=== PATIENT | female | born 1995 | race Hispanic/Latino ===

== ENCOUNTER 2017-09-12 21:39 | Emergency (ER) | payer MEDICAID, SELFPAY ==
[2017-09-12 21:41] VITALS: BP 121/82; PULSE 97; RESP 14; TEMP 36.8; O2SAT 100; BMI 19.1
[2017-09-12 23:18] VITALS: BP 108/61; PULSE 79; RESP 18; O2SAT 100
--- NOTE | 2017-09-12 23:36 | EKG12_ITS ---
Test Reason : SYNCOPE Blood Pressure : / mmHG Vent. Rate : 100 BPM Atrial Rate : 100 BPM P-R Int : 126 ms QRS Dur : 082 ms QT Int : 352 ms P-R-T Axes : 072 066 036 degrees QTc Int : 454 ms Normal sinus rhythm Low voltage QRS Borderline ECG Confirmed by RICH GUNDERSON, ERIKA ([id number]), editor producer MARI ALDRIDGE ([id number]) on 09/14/2017 3:16:19 PM Referred By: JYOTHI SHOOK/SG Confirmed By:ERIKA VILLANUEVA MD
--- NOTE | 2017-09-12 23:44 | NURSING ---
NO OLD EKG'S IN MUSE
[2017-09-12 23:51] VITALS: BP 109/76; BP 114/86; BP 98/63; PULSE 79; PULSE 80; PULSE 82
[2017-09-13] MEDS: 0.9% Normal Saline 1,000 ML 1000 ML IV (00:01)
[2017-09-13 00:11] LABS: Absolute Lymphocyte Count 2.44 X10^3/ul (0.83-4.51); Absolute Neutrophil Count 8.8 X10^3/uL (2.0-7.7); Basophil# 0.03 X10^3/uL; Basophil% 0.2 % (0-1); Eosinophil# 0.13 X10^3/uL; Eosinophils% 1.1 % (0-5); Hematocrit 34.8 % (37-47); Hemoglobin 11.8 g/dl (12.0-15.0); Lymphocyte # 2.44 X10^3/ul (4.0); Mean Corp Hgb Conc 33.9 g/gl (32-36); Mean Corpuscular Hgb 30.8 pg (27.0-32.0); Mean Corpuscular Volume 90.9 fL (81-99); Mean Platelet Vol. 10.5 fl (6.2-12.0); Monocyte# 0.79 X10^3/uL; Monocyte% 6.5 % (0-10); Neutrophil # 8.79 X10^3/uL (2.7-7.7); Platelet Count 202 K/mm3 (150-450); RBC Distribution Width CV 12.7 % (11.6-14.6); RBC Distribution Width SD 42.2 fl (35.1-43.9); Red Blood Count 3.83 M/mm3 (4.2-5.4); White Blood Count 12.2 K/mm3 (4.4-11.0)
[2017-09-13 00:13] LABS: POSITIVE COUNT NO; POSITIVE DIFFERENTIAL NO; POSITIVE MORPHOLOGY NO
[2017-09-13 00:31] LABS: Anion Gap 6 (5-15); BUN 8 mg/dL (7-18); BUN/Creat Ratio 17.9 RATIO (10-20); Calcium,Total 8.1 mg/dL (8.5-10.1); Chloride 110 mmol/L (98-107); Creatinine, Serum 0.45 mg/dL (0.55-1.02); EST Glomerular Filtration Rate 183 mL/min (>60); Est Glom Filt Rate - Afr Amer 221 mL/min (>60); Estimated Creatinine Clearance 158.25 ml/min; Glucose 113 mg/dL (74-106); Potassium 3.4 mmol/L (3.5-5.1); Sodium Level 143 mmol/L (136-145); Thyroid Stim Hormone (TSH) 1.23 uIU/mL (0.358-3.74)
[2017-09-13 00:55] LABS: Pregnancy, Serum, hCG Quali. NEGATIVE Negative (0-9 Nonpreg)
[2017-09-13 01:06] VITALS: BP 104/58; PULSE 83; RESP 20; O2SAT 100
--- NOTE | 2017-09-13 01:20 | ED.VISSUMM ---
- ER Visit Summary Date of Service: 09/13/17 Chief Complaint: Dizziness History of Present Illness: The patient is a 22 F presenting with dizziness. She states this has been ongoing for the past 10 days. She has felt lightheaded. It is worse when she stands. Today she had an episode where she had near syncope. She did not completely pass out. She describes a lightheaded and spinning sensation. Denies headache. Denies numbness or weakness. Denies fever. Denies chest pain or shortness of breath. Denies other complaints. Physical Examination: Vitals are stable. Patient is afebrile. Alert no acute distress. HEENT exam is unremarkable. Neck is supple. Lungs are clear and equal bilaterally. Heart is regular rate and rhythm. Abdomen is soft nontender nondistended. Extremities are unremarkable. Skin is warm and dry. No focal neurologic deficit. Remainder of exam is unremarkable. Emergency Department Course and Treatment: Patient was given IV fluids. CBC shows a white count of 12.2, hemoglobin 11.8. Chemistries unremarkable. HCG negative. TSH is normal. Orthostatics are negative. EKG sinus rate of 100 with no acute ischemic changes. CT head shows no acute process. Patient is feeling improved following IV fluids. She is advised to follow-up with her PCP and return to ED if she has worsening complaints. Disposition: Discharge home Impression: Dizziness This note was generated with Darby Smart dictation software. It may contain incorrect words, spelling, and punctuation that were not noted in review of the chart prior to signing ED Disposition - Plan for ED Patient: Chief Complaint: Dizziness Referrals: Care Physician,No Primary [Primary Care Provider] -
--- NOTE | 2017-09-13 01:25 | ED.DEP ---
ED Disposition - Plan for ED Patient: Chief Complaint: Dizziness Instructions: ED Dizziness [facility] Prescriptions: Meclizine HCl [Travel Sickness] 25 mg PO Q6H PRN PRN #[id number] tab.[id number] PRN Reason: Dizziness Referrals: Care Physician,No Primary [Primary Care Provider] -
[2017-09-13 01:39] VITALS: BP 110/72; PULSE 80; RESP 19; O2SAT 99
--- NOTE | 2017-09-13 01:40 | ED.RN ---
pt given written and verbal discharge instructions and home going prescriptions. pt verbalizes understanding, and denies any further questions. iv d/c and covered with 2x2 gauze dressing. minimal bleeding noted. pt dresses self and ambulates out of dept without difficulty.
--- NOTE | 2017-09-13 23:36 | CT_ITS ---
STUDY: CT BRAIN WITHOUT CONTRAST REASON FOR EXAM: Female, 22 years old. Dizziness RADIATION DOSAGE (If Supplied By Facility): CTDIvol = ( 44.99 ) mGy, DLP = ( 779.24 ) mGycm TECHNIQUE: Transaxial CT imaging of the brain was performed without administration of intravenous contrast material. Individualized dose optimization techniques were used for this CT. COMPARISON: None. FINDINGS: Normal soft tissue structures. Normal calvarium. Normal size ventricles and extra-axial spaces for the patient's age. Normal white matter tracts of the cerebral hemispheres. Normal basal ganglia and thalami. Normal brainstem. Normal cerebellum. There is no intracranial hemorrhage. There are no findings of an acute ischemic infarction. Normal visualized paranasal sinuses. CT/Brain/Head without Contrast IMPRESSION: Normal unenhanced CT scan of the brain. Comment: If there is clinical concern for hyperacute ischemia that is not yet apparent by CT, MRI should be considered if possible. Electronically Signed: Juan Ramon Tripp MD at 0:57 EDT Tel , Service support ,
== END 2017-09-13 01:42 | disposition home or self-care (01) ==
LOC: ED 23:43
PROVIDERS: Emergency Provider Emergency Medicine
DX: R55 Syncope and collapse (principal); R42 Dizziness and giddiness
CPT/HCPCS: 70450; 80048; 84443; 84703; 85025; 93005; 96360; 96361; 99284; J7030

== ENCOUNTER → 2018-02-22 15:08 | Outpatient (CLI) | payer MEDICAID, SELFPAY | PROVIDERS: Visit Provider Otolaryngology | DX: J02.9 Acute pharyngitis, unspecified (principal) | CPT/HCPCS: 87070 ==

== ENCOUNTER 2018-07-08 20:03 | Emergency (ER) | payer MEDICAID, SELFPAY ==
[2018-07-08 20:06] VITALS: BP 112/62; PULSE 81; RESP 15; TEMP 36.7; BMI 19.8
--- NOTE | 2018-07-08 20:16 | CT_ITS ---
STUDY: CT ABDOMEN AND PELVIS WITHOUT CONTRAST REASON FOR EXAM: Female, 23 years old. Lower abdominal pain and acid reflux. RADIATION DOSAGE (If Supplied By Facility): CTDIvol = ( 6.05 ) mGy, DLP = ( 303.93 ) mGycm TECHNIQUE: Transaxial images were obtained from the dome of the diaphragm to the symphysis pubis without oral contrast, and without intravenous contrast. Sagittal and coronal images were reconstructed. Individualized dose optimization techniques were used for this CT. COMPARISON: None. FINDINGS: The visualized lung bases are unremarkable. The visualized portions of the heart are within normal limits. Normal liver. Numerous small to moderate-sized gallstones in a nondistended gallbladder. Normal spleen. Normal pancreas. Normal bilateral adrenal glands. Normal right kidney. Normal size of the left kidney. One faint 3 mm nonobstructing calcification in the midpole of left kidney without hydronephrosis or ureteral stones. Food filled stomach. Negative for hiatal hernia. Normal small intestine. Stool filled colon. The appendix is visualized and appears normal. Normal abdominal aorta. Normal inferior vena cava. Normal retroperitoneum. Normal urinary bladder. Grossly negative for pelvic mass. Retroflexed uterus. Limited visibility of the gynecologic structures secondary to nonopacified small bowel. Normal abdominal wall. Normal osseous structures. CT/Abdomen/Pelvis without Cont IMPRESSION: Stone packed nondistended gallbladder without gross wall thickening or pericholecystic fluid. No acute bowel related findings. Negative for evidence of obstruction, perforation or inflammatory bowel changes. Stool-filled colon. Food filled stomach. Normal appendix. Normal size of the kidneys bilaterally. 3 mm calcification in the midpole of the left kidney without hydronephrosis or ureteral stones. Unremarkable urinary bladder. Unremarkable liver, spleen and pancreas. Electronically Signed: Halle Gruber MD at 22:12 EST , Service support ,
--- NOTE | 2018-07-08 20:18 | ED.DCSUM_ITS ---
- ER Visit Summary Date of Service: 07/08/18 Chief Complaint: Abdominal pain History of Present Illness: The patient is a 23 F who has pain in her right lower quadrant. It has been there for 3 days. She states that she felt a lump in her right lower quadrant she has pain that is burning around that area. No burning with urination. No nausea, vomiting, diarrhea, constipation or urinary symptoms. She states that her acid reflux has been acting up on her recently. No fevers. She took nothing for this at home. She has had 2 C-sections in the past and the lump is near the end of the scar of her . Physical Examination: Vital signs reviewed. HEENT exam unremarkable. Heart is regular rate and rhythm without murmurs. Lungs are clear to auscultation. Abdomen is soft and there is tenderness around this mass in the right lower quadrant. It is mobile. It is approximately 1 x 1 cm. There are no skin changes. Extremities reveal no edema. Skin exam normal. Neurologic exam normal. Test Results: Urinalysis negative for infection. HCG negative. CAT scan reveals a stone filled gallbladder. Otherwise there are no other acute findings. Emergency Department Course and Treatment: The patient's pain is in the right lower quadrant. I do feel a mobile cyst in this area. It could be a lipoma. Is not seen on CAT scan. I feel the patient can be discharged. She will need to follow-up with a surgeon regarding this as well as the stone filled gallbladder. She has no pain over the gallbladder at this time so I do not feel it requires any urgent management. Treatment Plan: [] Disposition: Discharge Impression: Abdominal pain This note was generated with [employer] dictation software. It may contain incorrect words, spelling, and punctuation that were not noted in review of the chart prior to signing ED Disposition - Plan for ED Patient: Chief Complaint: Abd Pain Referrals: Care Physician,No Primary [NON-STAFF] -
[2018-07-08] MEDS: Naproxen 500 MG Tablet PO (20:21)
[2018-07-08 20:36] LABS: Bacteria 0 SEEN /hpf (None Seen); Mucous, Urine 0 SEEN /hpf (<or=2+); Red Blood Cells-Urine 0 SEEN /hpf (0-5); Squamous Epithelial Cells - UA 0 SEEN /hpf (5-10); White Blood Cells 0 SEEN /hpf (0-5)
[2018-07-08 20:40] LABS: Color, Urine Yellow (Yellow); Glucose, Dipstick Normal (Normal); Internal QC Validated? YES +Cl - CLEAR BKGD; Ketone-Dipstick Negative (Negative); Leukocyte Esterase-Dipstick Negative /ul (Negative); Nitrite-Dipstick Negative (Negative); Occult Blood-Urine Negative /ul (Negative); Pregnancy, Urine Negative Negative; Protein-Dipstick Negative (Negative); Specific Gravity, Urine 1.015 (1.002-1.030); Urine Bilirubin Dipstick Negative (Negative); Urine Clarity Clear (Clear); Urine Urobilinogen Normal (Normal); Urine pH 6.5 (5.0 - 8.0)
[2018-07-08 22:16] VITALS: BP 126/80; PULSE 84; RESP 16; O2SAT 100
--- NOTE | 2018-07-08 22:18 | ED.DEP ---
ED Disposition - Plan for ED Patient: Disposition: Home or Assisted Living Chief Complaint: Abd Pain Instructions: ED Abdominal Pain Unkn Cause Referrals: Care Physician,No Primary [NON-STAFF] - Nilda Wang MD [STAFF PHYSICIAN] -
[2018-07-08 22:31] VITALS: BP 122/63; PULSE 89; RESP 14; O2SAT 100
== END 2018-07-08 22:32 | disposition home or self-care (01) ==
PROVIDERS: Emergency Provider Emergency Medicine; Family Provider Family Medicine; PCP Family Medicine
DX: R10.31 Right lower quadrant pain (principal); R19.03 Right lower quadrant abdominal swelling, mass and lump; K80.20 Calculus of gallbladder without cholecystitis without obstruction; K21.9 Gastro-esophageal reflux disease without esophagitis
CPT/HCPCS: 74176; 81001; 81025; 99283

== ENCOUNTER 2019-03-13 16:47 | Emergency (ER) | payer MEDICAID, SELFPAY ==
[2019-03-13 16:49] VITALS: BP 101/67; PULSE 86; RESP 16; TEMP 36.4; O2SAT 100; BMI 19.4
[2019-03-13 17:24] VITALS: PULSE 75
--- NOTE | 2019-03-13 18:00 | EKG12_ITS ---
Test Reason : PALPS/CP Blood Pressure : / mmHG Vent. Rate : 073 BPM Atrial Rate : 073 BPM P-R Int : 126 ms QRS Dur : 090 ms QT Int : 392 ms P-R-T Axes : 062 070 038 degrees QTc Int : 431 ms Normal sinus rhythm Low Voltage QRS (Limb Leads) Confirmed by FESTUS GUNDERSON, VERO ([id number]), desk editor JESSICA YADAV ([id number]) on 03/15/2019 2:02:55 PM Referred By: SANTOS/BOONE Confirmed By:VERO MORTENSEN MD
--- NOTE | 2019-03-13 18:01 | ED.VISSUMM ---
- ER Visit Summary Date of Service: 03/13/19 Chief Complaint: Palpitations History of Present Illness: The patient is a 23 F presenting with palpitations and chest pain. Patient states this started yesterday. She has consumed a normal amount of caffeine for her today. She denies any new medications. She complains of intermittent palpitations and chest pain yesterday and more constant symptoms today. She has no past medical history. She denies possibility of . She does not smoke, use alcohol or drugs. Denies other complaints. Physical Examination: Vitals are stable. Patient is afebrile. Alert no acute distress. HEENT exam is unremarkable. Neck is supple. Lungs are clear and equal bilaterally. Heart is regular rate and rhythm. Abdomen is soft nontender nondistended. Extremities are unremarkable. Skin is warm and dry. No focal neurologic deficit. Remainder of exam is unremarkable. Emergency Department Course and Treatment: She was given aspirin on arrival. EKG is sinus rhythm rate of 73 with no acute ischemic changes. Chest x-ray shows no acute process. CBC unremarkable. Chemistry is unremarkable. Troponin is negative. D-dimer negative. hCG negative. TSH is normal. Patient states she needs to leave emergency department and is no longer able to wait for test results. Recommend delta troponin. She is unable to stay for this test. She signed out AGAINST MEDICAL ADVICE. She understands risks of signing out against medical advice. She will return if she has any worsening complaints. She is advised follow-up with primary care physician. Advised return to ED for worsening symptoms. Disposition: AGAINST MEDICAL ADVICE Impression: Palpitations, chest pain This note was generated with eCullet dictation software. It may contain incorrect words, spelling, and punctuation that were not noted in review of the chart prior to signing ED Disposition - Plan for ED Patient: Instructions: CHEST PAIN, Uncertain Cause Referrals: Justyn Nieto MD [Primary Care Provider] -
--- NOTE | 2019-03-13 18:10 | RAD_ITS ---
STUDY: X-RAY CHEST REASON FOR EXAM: Female, 23 years old. Palpitations TECHNIQUE: Frontal view of the chest was performed COMPARISON: 10 July 2016 FINDINGS: Lungs are clear. There is no pneumothorax, pulmonary edema, pleural effusions or cardiomegaly. Osseous structures are intact. There is no gas under the diaphragms. [ ] RAD/Chest 1 View (Portable) IMPRESSION: 1. No acute cardiorespiratory disease. [ ] Electronically Signed: Lele Taylor, at 18:25 EDT Tel , Service support ,
[2019-03-13 18:15] VITALS: PULSE 84
[2019-03-13 18:16] LABS: Absolute Lymphocyte Count 2.63 X10^3/uL (0.83-4.51); Absolute Neutrophil Count 3.8 X10^3/uL (2.0-7.7); Basophil# 0.02 X10^3/uL; Basophil% 0.3 % (0-1); Eosinophil# 0.19 X10^3/uL; Eosinophils% 2.7 % (0-5); Hematocrit 36.2 % (37-47); Hemoglobin 11.7 g/dL (12.0-15.0); Lymphocyte # 2.63 X10^3/ul (4.0); Mean Corp Hgb Conc 32.3 g/dL (32-36); Mean Corpuscular Hgb 29.5 pg (27.0-32.0); Mean Corpuscular Volume 91.4 fL (81-99); Mean Platelet Vol. 11.2 fl (6.2-12.0); Monocyte# 0.48 X10^3/uL; Monocyte% 6.8 % (0-10); NRBC Flagged by Analyzer 0 % (0-5); Neutrophil # 3.76 X10^3/uL (2.7-7.7); Neutrophil % 52.8 % (47-70); Platelet Count 204 K/mm3 (150-450); RBC Distribution Width CV 12.6 % (11.6-14.6); RBC Distribution Width SD 41.7 fl (35.1-43.9); Red Blood Count 3.96 M/mm3 (4.2-5.4); White Blood Count 7.1 K/mm3 (4.4-11.0)
[2019-03-13] MEDS: Aspirin 81 MG TAB.CHEW 324 MG PO (18:24)
[2019-03-13 18:26] VITALS: O2SAT 100
[2019-03-13 18:26] LABS: D-Dimer Quantitative (DVT/PE) < 0.27 FEU/ug/m (0.27-0.49)
[2019-03-13 18:27] VITALS: BP 100/61; PULSE 80; RESP 18; O2SAT 100
[2019-03-13 18:36] LABS: Anion Gap 4 (5-15); BUN 16 mg/dL (7-18); BUN/Creat Ratio 23.6 RATIO (10-20); Calcium,Total 8.5 mg/dL (8.5-10.1); Chloride 106 mmol/L (98-107); Creatinine, Serum 0.68 mg/dL (0.55-1.02); EST Glomerular Filtration Rate 112 mL/min (>60); Est Glom Filt Rate - Afr Amer 135 mL/min (>60); Estimated Creatinine Clearance 105.82 ml/min; Glucose 87 mg/dL (74-106); Sodium Level 137 mmol/L (136-145); Thyroid Stim Hormone (TSH) 0.42 uIU/mL (0.358-3.74)
[2019-03-13 18:45] LABS: Internal QC Validated? YES +Cl - CLEAR BKGD; Pregnancy, Serum, hCG Quali. NEGATIVE Negative
[2019-03-13 19:13] VITALS: BP 106/63; PULSE 76; RESP 16; O2SAT 100
--- NOTE | 2019-03-13 20:48 | ED.DEP ---
ED Disposition - Plan for ED Patient: Instructions: CHEST PAIN, Uncertain Cause Referrals: Justyn Nieto MD [Primary Care Provider] -
== END 2019-03-13 21:04 | disposition left against medical advice (07) ==
LOC: ED 17:52
PROVIDERS: Emergency Provider Emergency Medicine; Family Provider Family Medicine; PCP Family Medicine
DX: R07.9 Chest pain, unspecified (principal); R00.2 Palpitations
CPT/HCPCS: 71045; 80048; 84443; 84484; 84703; 85025; 85379; 93005; 99283; A4216

== ENCOUNTER 2020-07-27 08:34 | Observation (INO) | payer MEDICAID, SELFPAY ==
[2020-07-27] VITALS (15 sets, daily range): BP systolic 97–121; BP diastolic 52–86; PULSE 9–99; RESP 14–18; TEMP 36.4–36.9; O2SAT 97–100; BMI 20.5; BMI 20.6
--- NOTE | 2020-07-27 | GALL_PTH ---
PATIENT: CHENCHO FOX LOC: [facility]3 U#:[id number] AGE/SX: 25/F ROOM: MS321 RE07/27/[address]: Dr. Makenna Thompson MD : 1995 BED: 1 DIS: 07/29/2020 SPEC #: [id number] RECD: 07/29/20 07:40 STATUS: BROOK RENoe #: [id number] RENARD: 07/27/20 00:[address]: Makenna Thompson DEPT: SURGICAL PATHOLOGY RECD BY: Lino Gandara ENTERED: 07/29/20 11:00 SP TYPE: ERMELINDA FREIRE DR: Dr. Justyn Nieto MD Tissues: Gallbladder, NOS Procedures: Surgery Specimen Level III HEADER OPERATION: Laparoscopic cholecystectomy with IOC PRE-OP DIAGNOSIS: Cholelithiasis, acute cholecystitis TISSUE SUBMITTED: Gallbladder MICROSCOPIC DIAGNOSIS Gallbladder, cholecystectomy: Acute and chronic cholecystitis with denudation of mucosa and cholelithiasis. AM:[place] 07/30/2020 MICROSCOPIC DESCRIPTION Slides are reviewed. GROSS DESCRIPTION Received is one container labeled with the patient's name and designated gallbladder. The specimen consists of a gallbladder measuring 10 x 3 x 3 cm. The external surface is smooth and glistening. Focally, it is granular, hemorrhagic and contains cautery artifact. The lumen of the gallbladder contains yellow-green mucoid bile and multiple green to black calculi ranging in size from <0.1 to 0.5 cm in greatest dimension. The gallbladder mucosa is bile-stained and without any mass lesions. The gallbladder wall averages 0.4 cm in thickness and is free of mass lesions. Social Media Specialist sections of the gallbladder and the cystic duct at margin of resection are submitted in one cassette. / AM:[place] 07/29/20 TC:2 [facility]: [id number]
--- NOTE | 2020-07-27 08:41 | ED.RN ---
pt on phone. this rn required to interrupt pt on 3 occasions to obtain information
--- NOTE | 2020-07-27 08:48 | US_ITS ---
STUDY: ABDOMINAL ULTRASOUND - RIGHT UPPER QUADRANT REASON FOR VISIT: Female, 25 years old ruq pain - h/o gallstones TECHNIQUE: Ultrasound evaluation of the right upper quadrant was performed with real-time and static villalobos-scale imaging. TECHNICAL QUALITY: Adequate. COMPARISON: None. FINDINGS: Liver: The liver measures 17.6 cm. There is normal echogenicity of the liver. The bile ducts are within normal limits. There is hepatic color flow. The direction of portal flow is hepatopetal. There is no demonstrated mass lesion. Gallbladder: Normal distended gallbladder. The gallbladder wall measures 5 mm. There is a positive sonographic Saucedo''s sign. There is pericholecystic fluid. There are multiple echogenic structures within the gallbladder, consistent with multiple gallstones. Common Bile Duct (C.B.D.): The common bile duct measures 3 mm. Questionable stone in the common bile duct. Pancreas: Normal size of the head, body and tail of the pancreas. There is normal echogenicity of the pancreas. There is no demonstrated pancreatic mass or cyst. Right Kidney: Normal size of the right kidney. The right kidney measures 11.1 cm. Normal renal cortex. The right cortex measures 1.2 cm. There is no demonstrated renal mass or cyst. There is no right hydronephrosis. US/Gallbladder IMPRESSION: 1. Cholelithiasis with acute cholecystitis with gallbladder wall thickening, pericholecystic fluid, positive sonographic Saucedo''s sign. 2. Suspect choledocholithiasis. MRCP may be useful. Alternatively, intraoperative cholangiogram during cholecystectomy could suffice per N.B. : The above information has been verbally conveyed by Franky Khanna MD to Juan Ramon Campbell MD, on 07/27/2020 10:22:36 (ET). Electronically Signed: Franky Khanna MD at 10:23 EST Tel , Service support ,
--- NOTE | 2020-07-27 08:49 | ED.DCSUM_ITS ---
History of Present Illness Chief Complaint: Abd Pain Informant: Patient Narrative: Very pleasant 25-year-old female presenting for the evaluation of right upper quadrant and epigastric abdominal pain. Patient notes that symptoms began around the new year and has been intermittent. However the past couple days the pain has come more frequently and more intense. Last night she ate salmon and boiled potatoes around 1800 hrs. The pain began around 0000 hours. Has been constant since then. She made herself vomit one time which she states helps to diminish the pain. No diarrhea. No fevers. She notes the pain radiates to the right back. Patient notes a prior surgical history of 2 C-sections. Approximately 2 years ago she was seen in the emergency department had a CAT scan that demonstrated a large amount of gallstones. She has not had surgery for this yet. Last p.o. intake was at 1800 hrs. Nothing since. Past Medical History - Allergies and Home Meds Allergies/Adverse Reactions: Allergies No Known Allergies Allergy (Verified 07/27/20 08:38) Primary Care Physician: Justyn Nieto MD [Primary Care Provider] - Past Medical History: None Surgical History: - - x2 Lives: With Family Smoking Status: Never smoker Alcohol: None Drugs: None Review of Systems General: Denies: Chills, Fever, Sweats Eyes: Denies: Visual changes - bilaterally, Diplopia ENT: Denies: Rhinorrhea, Sore throat Cardiovascular: Denies: Chest pain, Palpitations Respiratory: Denies: Dyspnea, Cough, Dyspnea on exertion Gastrointestinal: Reports: Abdominal pain, Nausea, Vomiting. Denies: Diarrhea, Melena, Hematochezia Genitourinary: Denies: Dysuria, Hematuria, Frequency Musculoskeletal: Denies: Back pain, Extremity Pain Skin: Denies: Rash, Wounds Neurological: Denies: Headache, Weakness, Numbness Physical Exam Vital Signs/Narrative: Vital Signs Temp Pulse Resp BP Pulse Ox 07/27/20 08:35 97.9 F 99 18 114/78 100 Inital Vital Signs reviewed: Yes General: Well nourished, Well developed, No Acute Distress Head: Normocephalic, Atraumatic Eyes: Perrl, EOMI ENT: Moist mucous membranes, No rhinorrhea Neck: Supple, Nontender Cardiovascular: Regular rate, Regular rhythm, No murmurs Respiratory: No distress, CTA bilaterally, Chest nontender Abdomen: Soft, Nondistended, Normal bowel sounds, Tender - Upper quadrant, Guarding, Rebound tenderness Back: Nontender, Normal Inspection Extremities: Nontender, No edema Skin: Normal color, No rash Neurological: Alert, Oriented x3, Cranial nerves II-XII grossly intact, Normal Strength, Normal Sensation Psychological: Normal affect, Normal Mood Diagnostic/Tx/Re-eval Laboratory Last Values WBC 10.1 K/mm3 (4.4-11.0) 07/27/20 09:00 RBC 4.46 M/mm3 (4.2-5.4) 07/27/20 09:00 Hgb 13.0 g/dL (12.0-15.0) 07/27/20 09:00 Hct 41.0 % (37-47) 07/27/20 09:00 MCV 91.9 fL (81-99) 07/27/20 09:00 MCH 29.1 pg (27.0-32.0) 07/27/20 09:00 MCHC 31.7 g/dL (32-36) L 07/27/20 09:00 RDW Std Deviation 42.4 fl (35.1-43.9) 07/27/20 09:00 RDW Coeff of Augustine 12.5 % (11.6-14.6) 07/27/20 09:00 Plt Count 230 K/mm3 (150-450) 07/27/20 09:00 MPV 10.9 fl (6.2-12.0) 07/27/20 09:00 Immature Gran % (Auto) 0.600 % (0.0-0.9) 07/27/20 09:00 Neut % (Auto) 67.9 % (47-70) 07/27/20 09:00 Lymph % (Auto) 21.6 % (19-41) 07/27/20 09:00 Toole % (Auto) 5.7 % (0-10) 07/27/20 09:00 Eos % (Auto) 3.9 % (0-5) 07/27/20 09:00 Baso % (Auto) 0.3 % (0-1) 07/27/20 09:00 Absolute Neuts (auto) 6.9 X10^3/uL (2.0-7.7) 07/27/20 09:00 Absolute Lymphs (auto) 2.18 X10^3/uL (0.83-4.51) 07/27/20 09:00 Nucleated RBC % 0 % (0-5) 07/27/20 09:00 Sodium 136 mmol/L (136-145) 07/27/20 09:00 Potassium 3.7 mmol/L (3.5-5.1) 07/27/20 09:00 Chloride 103 mmol/L (98-107) 07/27/20 09:00 Carbon Dioxide 28.0 mmol/L (21.0-32.0) 07/27/20 09:00 Anion Gap 5 (5-15) 07/27/20 09:00 BUN 8 mg/dL (7-18) 07/27/20 09:00 Creatinine 0.64 mg/dL (0.55-1.02) 07/27/20 09:00 Estim Creat Clear Calc 113.46 ml/min 07/27/20 09:00 Est GFR (MDRD) Af Amer 144 mL/min (>60) 07/27/20 09:00 Est GFR (MDRD) Non-Af 119 mL/min (>60) 07/27/20 09:00 BUN/Creatinine Ratio 12.6 RATIO (10-20) 07/27/20 09:00 Glucose 96 mg/dL (74-106) 07/27/20 09:00 Calcium 9.1 mg/dL (8.5-10.1) 07/27/20 09:00 Total Bilirubin 1.30 mg/dL (0.20-1.00) H 07/27/20 09:00 Direct Bilirubin 0.28 mg/dL (0.00-0.30) 07/27/20 09:00 AST 10 U/L (15-37) L 07/27/20 09:00 ALT 16 U/L (13-56) 07/27/20 09:00 Alkaline Phosphatase 68 U/L (45-117) 07/27/20 09:00 Total Protein 8.1 g/dL (6.4-8.2) 07/27/20 09:00 Albumin 3.9 g/dL (3.2-5.0) 07/27/20 09:00 Globulin 4.2 g/dL (2.2-4.2) 07/27/20 09:00 Amylase 65 U/L (25-115) 07/27/20 09:00 Lipase 95 U/L (73-393) 07/27/20 09:00 Serum , Qual NEGATIVE Negative 07/27/20 09:00 Clinical Impression(s) from Imaging Studies Gallbladder Ultrasound 07/27/20 08:48 IMPRESSION: 1. Cholelithiasis with acute cholecystitis with gallbladder wall thickening, pericholecystic fluid, positive sonographic Saucedo''s sign. 2. Suspect choledocholithiasis. MRCP may be useful. Alternatively, intraoperative cholangiogram during cholecystectomy could suffice per N.B. : The above information has been verbally conveyed by Franky Khanna MD to Juan Ramon Campbell MD, on 07/27/2020 10:22:36 (ET). Electronically Signed: Franky Khanna MD at 10:23 EST Tel , Service support , ADDENDUM: 07/27/20 1030 IMPRESSION: 1. Cholelithiasis with acute cholecystitis with gallbladder wall thickening, pericholecystic fluid, positive sonographic Saucedo''s sign. 2. Suspect choledocholithiasis. MRCP may be useful. Alternatively, intraoperative cholangiogram during cholecystectomy could suffice per N.B. : The above information has been verbally conveyed by Franky Khanna MD to Juan Ramon Campbell MD, on 07/27/2020 10:22:36 (ET). Electronically Signed: Franky Khanna MD at 10:23 EST Tel , Service support , - Medical Decision Making Patient's white count is normal. Gallbladder ultrasound shows cholelithiasis, gallbladder wall thickening, pericholecystic fluid, positive Saucedo sign. Medical Office Technician raise question of a possible stone in the common bile duct. I discussed that with radiologist directly. At this point is most likely not a stone. Her liver enzymes do not raise a obstructive pattern patient has initially refused morphine. I will give her a dose of Zosyn. Dr. Thompson who is on-call for surgery will be in to see the patient. ED Disposition - Plan for ED Patient: Disposition: Acute Care [facility] Diagnosis: Acute cholecystitis Referrals: Justyn Nieto MD [Primary Care Provider] -
[2020-07-27] MEDS: Ondansetron 4 MG/2 ML Vial IV ×2 (09:08→17:35)
[2020-07-27] MEDS: 0.9% Normal Saline 1,000 ML 1000 ML IV (09:09)
[2020-07-27 09:15] LABS: Absolute Lymphocyte Count 2.18 X10^3/uL (0.83-4.51); Absolute Neutrophil Count 6.9 X10^3/uL (2.0-7.7); Basophil# 0.03 X10^3/uL; Basophil% 0.3 % (0-1); Eosinophil# 0.39 X10^3/uL; Eosinophils% 3.9 % (0-5); Lymphocyte # 2.18 X10^3/ul (4.0); Lymphocyte % 21.6 % (19-41); Mean Corp Hgb Conc 31.7 g/dL (32-36); Mean Corpuscular Hgb 29.1 pg (27.0-32.0); Mean Corpuscular Volume 91.9 fL (81-99); Mean Platelet Vol. 10.9 fl (6.2-12.0); Monocyte# 0.58 X10^3/uL; Monocyte% 5.7 % (0-10); NRBC Flagged by Analyzer 0 % (0-5); Neutrophil # 6.87 X10^3/uL (2.7-7.7); Neutrophil % 67.9 % (47-70); Platelet Count 230 K/mm3 (150-450); RBC Distribution Width CV 12.5 % (11.6-14.6); RBC Distribution Width SD 42.4 fl (35.1-43.9); Red Blood Count 4.46 M/mm3 (4.2-5.4); White Blood Count 10.1 K/mm3 (4.4-11.0)
[2020-07-27 09:37] LABS: AST(SGOT) 10 U/L (15-37); Alanine Aminotransfer ALT/SGPT 16 U/L (13-56); Albumin, Serum 3.9 g/dL (3.2-5.0); Alkaline Phosphatase 68 U/L (45-117); Amylase 65 U/L (25-115); Anion Gap 5 (5-15); BUN 8 mg/dL (7-18); BUN/Creat Ratio 12.6 RATIO (10-20); Bilirubin, Direct 0.28 mg/dL (0.00-0.30); Calcium,Total 9.1 mg/dL (8.5-10.1); Chloride 103 mmol/L (98-107); Creatinine, Serum 0.64 mg/dL (0.55-1.02); EST Glomerular Filtration Rate 119 mL/min (>60); Est Glom Filt Rate - Afr Amer 144 mL/min (>60); Estimated Creatinine Clearance 113.46 ml/min; Globulin 4.2 g/dL (2.2-4.2); Glucose 96 mg/dL (74-106); Lipase 95 U/L (73-393); Potassium 3.7 mmol/L (3.5-5.1); Protein, Total 8.1 g/dL (6.4-8.2); Sodium Level 136 mmol/L (136-145)
[2020-07-27 09:41] LABS: Internal QC Validated? YES +Cl - CLEAR BKGD; Pregnancy, Serum, hCG Quali. NEGATIVE Negative
--- NOTE | 2020-07-27 10:51 | ED.RN ---
pt initially refuses pain meds. Refused additional offers as well.
--- NOTE | 2020-07-27 11:04 | PCM.HP.BLA ---
History and Physical Date of Admission: 07/27/20 Chief Complaint: RUQ abdominal pain History of Present Illness: 25 y/o F presents to ED with severe RUQ abdominal pain. Noted for the past couple of weeks. She is found in the ED to have a normal WBC with no left shift of differential. She has elevated tbili of 1.3. US gallbladder - pericholecystic fluid, wall thickening, positive Saucedo's sign, multiple gallstones. She has been having chills. She states that she has no appetite. Past Medical History: denies major medical illnesses Past Surgical History: csections x 2 Medications: denies taking chronic medications Allergies: Has no known drug allergies Social history: TOB use denies Review of Systems: General - has had chills, has decreased appetite Cardiovascular has had chest palpitations and pains in the past attributed to anxiety and stress, denies history of [place] Pulmonary denies shortness of breath, denies coughing up blood Gastrointestinal as per HPI, denies blood in stools, denies hematemesis Neurological denies numbness/weakness of extremities, denies seizures, denies history of stroke Genitourinary denies burning with urination, denies blood in urine Hematological denies spontaneous/prolonged bleeding Skin denies open non healing wounds Musculoskeletal denies history of fractures, denies arthritis Endocrine denies diabetes, denies thyroid problems Psychological denies suicidal ideation, denies hallucinations Physical examination: Vital signs Temp 97.9F HR 99 RR 18 BP 114/78 BMI 20 General WD/WN F in apparent abdominal pain with distress, alert and oriented, not septic appearing HEENT Normocephalic. EOM intact with sclera clear and no icterus noted. Neck is supple with no jugular venous distention noted. Trachea is midline. Lungs normal inspiratory effort. No adventitial sounds noted. No labored breathing noted, such as retractions. No cough heard. Heart regular. Abdomen soft but with RUQ abdominal pain with Saucedo's sign. Extremities no calf tenderness noted. No pitting edema noted. No obvious deformity noted. Genitourinary/Rectal deferred Skin normal skin integrity. Neurological non focal. Psychological normal affect, patient is calm and appropriate Impression: cholelithiasis, acute cholecystitis DIscussion/Plan: I have discussed the above with the patient. I have offered the patient the procedure of laparoscopic cholecystectomy, possible cholangiograms. I have explained the procedure to the patient. I have counseled the patient as to the risks of the procedure, including but not limited to: infection, bleeding, injury to any blood vessels/nerves, scar tissue, injury to any intraabdominal organs, injury to kidney/ureters, injury to bowel/bladder, injury to the common bile duct/biliary tree, bile leakage, intraabdominal abscess/bleeding, hernias at incisional sites, wound infections, possible open procedure, complications of anesthesia, postoperative pneumonia/cardiac problems/blood clots etc. the patient understands. The patient was offered a surgery/procedure. The provider and patient have discussed in detail the risk of exposure to and/or potential harm posed by the COVID-19 virus with having a surgery/procedure at this time versus the risk of delaying the surgery/procedure. It is not possible to know either the risk of delaying the surgery or procedure or chance of getting an infection with perfect accuracy, but a joint decision was made between the patient and the provider to proceed at this time with the scheduled surgery/procedure. I have answered all questions to the patient?s satisfaction and the patient has no further questions.
--- NOTE | 2020-07-27 11:09 | NURSING ---
OR BEAU LAP CHOLECYSTITIS
--- NOTE | 2020-07-27 11:14 | NURSING ---
MED SURG ACUTE CHOLECYSTITIS YANEZ
[2020-07-27] MEDS: 0.9% Normal Saline 1,000 ML 250 ML IV (11:26)
--- NOTE | 2020-07-27 12:25 | RAD_ITS ---
PROCEDURE: INTRAOPERATIVE CHOLANGIOGRAM DATE OF EXAMINATION: 07/27/2020 INDICATION: Female, 25 years old. Following a laparoscopic cholecystectomy an intraoperative cholangiogram was performed by the surgeon. Single fluoroscopic image. 0.8 seconds of fluoroscopy time. TECHNIQUE: Under fluoroscopic guidance an intraoperative cholangiogram was performed with serial digital images obtained. FINDINGS: Partial opacification of the gallbladder with extravasation in the brad hepatis. Minimal filling of the intrahepatic and upper common hepatic duct but there is nonvisualization of the common duct. RAD/Cholangiogram/ O R,Initial IMPRESSION: Very limited intraoperative cholangiogram. Limited diagnostic information. Electronically Signed: Luis Daniel Navarrete MD ([facility]) at 15:18 EST , Service support ,
[2020-07-27] MEDS: Bupiv/Epi 0.25% 30 ML Vial (13:00)
--- NOTE | 2020-07-27 13:53 | OP.PCM_ITS ---
Report of Operation Date of Procedure: 07/27/20 Pre-Operative Diagnosis: cholelithiasis, acute cholecystitis, severe RUQ a bdominal pain Post-Operative Diagnosis: cholelithiasis with obstruction, acute cholecystitis, choledocholithiasis with obstruction Surgery/Procedure Performed:: laparoscopic cholecystectomy with cholangiograms Description of Surgical Findings:: very short cystic duct, multiple stones in common bile duct as seen by cholangi ograms with obstruction no flow into duodenum aviation project engineer: Lori Richardson Type of Anesthesia:: General Anesthesiologist: Wyatt Rachel Specimen's removed: gallbladder and contents Drains: 15 Fr passive drain in right upper quadrant inferior to liver Estimated Blood Loss (mL): < 5 ml Fluids Replaced: 1500 ml RL Description of Procedure: After informed consent was given, the patient was brought to the Operating Room. Appropriate time out protocol was followed. The patient was placed in the supine position. The patient was then placed under general endotracheal anesthesia by the anesthesia provider. The abdomen was then prepped with a sterile surgical skin preparation and sterile surgical drapes were placed. The infraumbilical skin fold was grasped with penetrating clamps and the skin and subcutaneous tissues were infiltrated with 0.25% marcaine with epinephrine. A skin incision was then made with a 15 blade scalpel. The anterior abdominal wall was elevated and a Veress needle was carefully inserted into the intraabdominal cavity. It was checked to be in the proper position with a normal saline drop test. A CO2 pneumoperitoneum was then created. Once this was achieved, then the Veress needle was removed and an 11mm trocar was placed in its stead. A 10mm laparoscope was then inserted into the trocar and careful attention was directed to the intraabdominal contents. There was no evidence of injury to any intraabdominal organs from insertion of the Veress needle or the trocar. Under direct visualization, a 5mm subxiphoid trocar and two lateral 5mm right subcostal trocars were placed. The skin and subcutaneous tissues at these sites were infiltrated with 0.25% marcaine with epinephrine prior to placement of these trocars. Attention was then directed to the right upper quadrant of the abdomen. The liver appeared grossly normal. There were omental adhesions to the free surface of the gallbladder, these were taken down by blunt dissection. The gallbladder wall was edematous and thickened. The gallbladder was distended and was decompressed with a needle trocar such that it could be grasped for retraction. Graspers were placed in the lateral trocars to grasp the distal aspect of the gallbladder and direct it cephalad and to grasp the gallbladder at Anton?s pouch and direct it laterally. Dissection then began on the proximal gallbladder continuing down to the area of the triangle of Calot to bluntly dissect out the cystic duct. The neck of the gallbladder was identified. The critical angle was identified. Blunt dissection then continued to dissect out the cystic duct which was noted to be larger than normal and also short. A clip was then placed on the neck of the gallbladder. A small ductotomy was then made near the clip. The cystic duct was 'milked' and gravel like substance emanated. A Ranfac catheter was brought in through a separate skin incision and placed into the cystic duct. An intraoperative cholangiogram was performed under fluoroscopy. The xray revealed at least three stones in the common bile duct and no flow into the duodenum. The Ranfac catheter was then removed and two clips were placed proximal to the ductotomy. The cystic duct was then transected. The cystic artery was visualized and bluntly isolated and then two clips were placed proximally and one clip distally and then it was transected be tween the proximal and distal clips. The gallbladder was then from the liver bed using electrocautery. Once from the liver bed, it was placed in an Endobag. It was brought out via the umbilical port. It was then forwarded to pathology for analysis. The liver bed was carefully examined. There was no evidence of bile leakage or bleeding. The cystic duct stump and cystic artery stump had their clips intact and there was no evidence of bile leakage or bleeding. A 15 Fr passive drain was placed via one of the lateral trocars and the drainage portion was directed inferior to the liver, primarily in the gallbladder fossa area. The remainder of the abdomen was grossly normal. The CO2 was released and all trocars removed intact. The periumbilical fascia was approximated with a [id number] 0 vicryl suture. The drain was sutured to the abdominal wall skin with nylon suture. All skin incision were closed with 4-0 monocryl in a subdermal fashion. Cavilol and Steristrips were used to reinforce the skin closure. Sterile dressings were applied to all wounds. Sponge, needle and instrument count was verified and correct at time of skin closure. The patient was extubated and brought to the Recovery Room in stable condition. - Complications none noted - Admit VTE Documentation VTE Present on Admission: Yes VTE Mechan Device Prophylaxis: SCD's
--- NOTE | 2020-07-27 14:01 | PCM.PN.BLA ---
Progress Note patient was noted to have cholelithiasis with complete obstruction. I discussed case with Dr. Burgos. He will perform ERCP tomorrow. Will keep patient in the hospital and continue antibiotics. Will make patient NPO after MDNT in anticipation for ERCP. STROKE Vital Signs/Narrative: Vital Signs Temp Pulse Resp BP Pulse Ox 07/27/20 11:27 98.5 F 9 L 16 115/70 100 07/27/20 11:06 98.5 F 79 16 115/70 100
[2020-07-27] MEDS: Lactated Ringers 1,000 ML 100 ML IV ×2 (14:16→14:25)
[2020-07-27] MEDS: 0.9% Normal Saline 1,000 ML 100 ML IV (17:17)
[2020-07-27] MEDS: Morphine 4 MG/ML Syringe IV ×2 (21:12→23:39)
[2020-07-27] MEDS: 0.9% Saline Lock 10 ML Syringe IV ×2 (21:12→23:39)
[2020-07-28] VITALS (15 sets, daily range): BP systolic 95–115; BP diastolic 50–74; PULSE 80–107; RESP 14–20; TEMP 36.7–37.6; O2SAT 96–100; BMI 20.5
[2020-07-28] MEDS: Morphine 4 MG/ML Syringe IV ×3 (02:41→22:37)
[2020-07-28] MEDS: 0.9% Saline Lock 10 ML Syringe IV ×3 (02:42→22:38)
--- NOTE | 2020-07-28 06:00 | EKG12_ITS ---
Test Reason : AM EKG Blood Pressure : / mmHG Vent. Rate : 082 BPM Atrial Rate : 082 BPM P-R Int : 122 ms QRS Dur : 090 ms QT Int : 378 ms P-R-T Axes : 056 019 004 degrees QTc Int : 441 ms Normal sinus rhythm Normal ECG Confirmed by RICH GUNDERSON, ERIKA ([id number]), web editor JESSICA YADAV ([id number]) on 07/30/2020 8:50:30 AM Referred By: BEAU Confirmed By:ERIKA VILLANUEVA MD
[2020-07-28] MEDS: 0.9% Normal Saline 1,000 ML 100 ML IV ×2 (06:43→14:01)
--- NOTE | 2020-07-28 07:18 | PN.SURG_ITS ---
Patient Problems: Active and Suspected Problems (This Medical Record has been edited. Action required.) Acute cholecystitis (Acute) Subjective: Patient reports a lot of tenderness and surgery. - Physical Exam Vitals/I&O's: Vital Signs Temp Pulse Resp BP Pulse Ox 99 F 80 16 99/58 L 98 07/28/20 05:15 07/28/20 05:15 07/28/20 05:15 07/28/20 05:15 07/28/20 05:15 Oxygen Flow Rate (L/min) 2 Oxygen Delivery Method Room Air Weight: 123 lb 8 oz Body Mass Index (BMI) 20.5 Intake and Output for Last 24 Hours 07/26/20 07/27/20 07/28/20 23:59 23:59 23:59 Intake Total 3416.67 / 3416.67 1050 / 1050 Output Total 1400 / 1400 730 / 730 Balance / 320 / 320 General: Alert, Oriented x3 Neck: No JVD Abdomen: Soft, Non-Distended, Tender - Tender in the right upper abdomen area Microbiology Past 72 Hours 07/27/20 09:14 Mucosa - Nose SARS-CoV-2 Antigen (Rapid) - Final Laboratory Results 07/27/20 09:00: WBC 10.1, RBC 4.46, Hgb 13.0, Hct 41.0, MCV 91.9, MCH 29.1, MCHC 31.7 L, RDW Std Deviation 42.4, RDW Coeff of Augustine 12.5, Plt Count 230, MPV 10.9, Immature Gran % (Auto) 0.600, Neut % (Auto) 67.9, Lymph % (Auto) 21.6, Pender % (Auto) 5.7, Eos % (Auto) 3.9, Baso % (Auto) 0.3, Absolute Neuts (auto) 6.9, Absolute Lymphs (auto) 2.18, Nucleated RBC % 0 07/27/20 09:00: Sodium 136, Potassium 3.7, Chloride 103, Carbon Dioxide 28.0, Anion Gap 5, BUN 8, Creatinine 0.64, Estim Creat Clear Calc 113.46, Est GFR (MDRD) Af Amer 144, Est GFR (MDRD) Non-Af 119, BUN/Creatinine Ratio 12.6, Glucose 96, Calcium 9.1, Total Bilirubin 1.30 H, Direct Bilirubin 0.28, AST 10 L , ALT 16, Alkaline Phosphatase 68, Total Protein 8.1, Albumin 3.9, Globulin 4.2, Amylase 65, Lipase 95 07/27/20 09:00: Serum , Qual NEGATIVE Current Medications Hydrocodone Bitart/Acetaminophen (Hydrocodone Bitartrate/Apap 5/325 Tablet) 1 tablet PO Q3H PRN PRN PRN Reason: Pain Score 1-5 Sodium Chloride () 1,000 mls @ 100 mls/hr IV .Q10H PHONG Last Admin: 07/28/20 06:43 Dose: 100 mls/hr Documented by: Piperacillin Sod/Tazobactam (Sod 3.375 gm/ Sodium Chloride) 50 mls @ 12.5 mls/hr IV Q8 [facility] Last Admin: 07/28/20 05:20 Dose: 12.5 mls/hr Documented by: Sodium Chloride () 250 mls @ 15 mls/hr IV .[id number] PRN PRN Reason: Saline Flush Sodium Chloride () 250 mls @ 15 mls/hr IV .[id number] PRN PRN Reason: Additional IVPB Infusion Morphine Sulfate (Morphine 4 Mg/Ml Syringe) 4 mg IV Q2H PRN PRN PRN Reason: Pain Score 6-10 Last Admin: 07/28/20 02:41 Dose: 4 mg Documented by: Nutritional Formula (Lactose Free) (Ensure Enlive 120 Ml Liquid) 120 ml PO 4X/DAY [facility] Last Admin: 07/27/20 22:58 Dose: Not Given Documented by: Ondansetron HCl (Ondansetron 4 Mg/2 Ml Vial) 4 mg IV Q8 PRN PRN Reason: NAUSEA/VOMITING Last Admin: 07/27/20 17:35 Dose: 4 mg Documented by: Sodium Chloride (0.9% Saline Lock 10 Ml Syringe) 10 - 40 ml IV UD PRN PRN Reason: SALINE FLUSH Last Admin: 07/28/20 02:42 Dose: 10 ml Documented by: Medical Necessity - Tobacco Use Smoking Status: Never smoker Assessment/Plan All Active Problems (This Medical Record has been edited. Action required.) Acute cholecystitis (Acute) 25-year-old female with possible choledocholithiasis and obstruction 1. Patient had laparoscopic cholecystectomy history intraoperative cholangiogram showed possible filling defects in the bile duct with no filling of the duodenum. I was consulted for ERCP. The patient had a drain placed and the drain seems serous. 2. I discussed ERCP with the patient in detail. I discussed the procedure as well as the possibility stent placement. I discussed the risks including but not limited to bleeding, infection, perforation of the bile duct or bowel, pancreatitis. The patient understands all the risks and is well to proceed. I will take the patient for ERCP this morning. Gulshan Burgos MD Pager: [facility] [address] [place] [address] Office:
--- NOTE | 2020-07-28 10:45 | NURSING ---
Pt to PACU for ERCP
[2020-07-28] MEDS: Lactated Ringers 1,000 ML 100 ML IV ×2 (11:00→11:50)
--- NOTE | 2020-07-28 11:00 | RAD_ITS ---
PROCEDURE: FLUOROSCOPIC GUIDANCE FOR ERCP DATE OF EXAMINATION: 07/28/2020 INDICATION: Female, 25 years old. Guidance for ERCP, status post cholecystectomy Dose area product: 0.79 mGycm2 TECHNIQUE: Fluoroscopy was provided for ERCP procedure. Several digital spot images were obtained. Initial images demonstrate introduction of a guidewire into the common bile duct in a retrograde fashion with subsequent injection of contrast. Contrast is seen to opacify the common bile duct, as well as the intrahepatic biliary radicals surgical drain projects in the right upper abdomen. On image 1, there are filling defects in the lower common duct with subsequent passage of a procedural balloon. Final image demonstrates a small filling defect in the right lateral lower common duct that could represent an air bubble versus small stone. However, on image 3, no filling defects are identified. Contrast in the duodenum confirmed. RAD/ERCP Biliary/Pancreas IMPRESSION: Guidance for ERCP. Choledocholithiasis. Guidance for balloon extraction. See above and procedural report for details. Electronically Signed: Luis Daniel Navarrete MD (Brooks) at 13:55 EST , Service support ,
--- NOTE | 2020-07-28 11:04 | PN.SURG_ITS ---
Patient Problems: Active and Suspected Problems (This Medical Record has been edited. Action required.) Acute cholecystitis (Acute) Subjective: I have explained to patient need for ERCP when I called her last night She will be undergoing ERCP by Dr. Burgos today - Physical Exam Vitals/I&O's: Vital Signs Temp Pulse Resp BP Pulse Ox 98.2 F 85 18 105/64 100 07/28/20 07:49 07/28/20 07:49 07/28/20 07:49 07/28/20 07:49 07/28/20 07:49 Oxygen Flow Rate (L/min) 2 Oxygen Delivery Method Room Air Weight: 56.019 kg Body Mass Index (BMI) 20.5 Intake and Output for Last 24 Hours 07/26/20 07/27/20 07/28/20 23:59 23:59 23:59 Intake Total 3416.67 / 3416.67 1100 / 1100 Output Total 1400 / 1400 730 / 730 Balance 2016 / 370 / 370 General: Alert, Oriented x3 Oral: Moist Mucosa Neck: Supple Lungs: Normal air movement Abdomen: - - FAHAD serosanguinous drainage Microbiology Past 72 Hours 07/27/20 09:14 Mucosa - Nose SARS-CoV-2 Antigen (Rapid) - Final Current Medications Hydrocodone Bitart/Acetaminophen (Hydrocodone Bitartrate/Apap 5/325 Tablet) 1 tablet PO Q3H PRN PRN PRN Reason: Pain Score 1-5 Sodium Chloride () 1,000 mls @ 100 mls/hr IV .Q10H [facility] Last Admin: 07/28/20 06:43 Dose: 100 mls/hr Documented by: Piperacillin Sod/Tazobactam (Sod 3.375 gm/ Sodium Chloride) 50 mls @ 12.5 mls/hr IV Q8 [facility] Last Infusion: 07/28/20 09:20 Dose: Infused Documented by: Sodium Chloride () 250 mls @ 15 mls/hr IV .[id number] PRN PRN Reason: Saline Flush Sodium Chloride () 250 mls @ 15 mls/hr IV .[id number] PRN PRN Reason: Additional IVPB Infusion Morphine Sulfate (Morphine 4 Mg/Ml Syringe) 4 mg IV Q2H PRN PRN PRN Reason: Pain Score 6-10 Last Admin: 01/31/21 02:41 Dose: 4 mg Documented by: Nutritional Formula (Lactose Free) (Ensure Clear 120 Ml Liquid) 120 ml PO 4X/DAY PHONG Ondansetron HCl (Ondansetron 4 Mg/2 Ml Vial) 4 mg IV Q8 PRN PRN Reason: NAUSEA/VOMITING Last Admin: 07/27/20 17:35 Dose: 4 mg Documented by: Sodium Chloride (0.9% Saline Lock 10 Ml Syringe) 10 - 40 ml IV UD PRN PRN Reason: SALINE FLUSH Last Admin: 07/28/20 02:42 Dose: 10 ml Documented by: Medical Necessity - Tobacco Use Smoking Status: Never smoker Assessment/Plan All Active Problems (This Medical Record has been edited. Action required.) Acute cholecystitis (Acute) Impression: POD#! s/p laparoscopic cholecystectomy with obstructive choledocholithiasis Plan: ERCP today if OK, consider discharge today or tomorrow
--- NOTE | 2020-07-28 11:55 | OP.ERCP_ITS ---
Patient Name: Connie Calix Procedure Date: 07/28/2020 10:28 AM Date of : 1995 Age: 25 Procedure: ERCP Indications: Common bile duct stone(s) Providers: Gulshan Burgos MD Medicines: General Anesthesia Patient Profile: This is a 25 year old female. Refer to note in patient chart for documentation of history and physical. Complications: No immediate complications. Procedure: Pre-Anesthesia Assessment: - Prior to the procedure, a History and Physical was performed, and patient medications and allergies were reviewed. The patient's tolerance of previous anesthesia was also reviewed. The risks and benefits of the procedure and the sedation options and risks were discussed with the patient. All questions were answered, and informed consent was obtained. Prior Anticoagulants: The patient has taken no previous anticoagulant or antiplatelet agents. After reviewing the risks and benefits, the patient was deemed in satisfactory condition to undergo the procedure. After obtaining informed consent, the scope was passed under direct vision. Throughout the procedure, the patient's blood pressure, pulse, and oxygen saturations were monitored continuously. The duodenoscope was introduced through the mouth, and advanced to the duodenum and used to inject contrast into the bile duct. The ERCP was accomplished without difficulty. The patient tolerated the procedure well. Scope In: 11:19:00 AM Scope Out: 11:40:04 AM Total Procedure Duration Time 0 hours 21 minutes 4 seconds Findings: A 0.035 inch x 260 cm straight Dreamwire was passed into the biliary tree. The sphincterotome was passed over the guidewire and the bile duct was then deeply cannulated. Contrast was injected. The lower third of the main bile duct contained filling defect(s) thought to be a stone. Biliary sphincterotomy was made with a monofilament sphincterotome using ERBE electrocautery. There was no post-sphincterotomy bleeding. The biliary tree was swept with a 12 mm balloon starting at the bifurcation. Sludge was swept from the duct. One stone was removed. No stones remained. There was some swelling at the ampulla so a stent was placed. One 7 Fr by 5 cm plastic stent with a single external flap and a single internal flap was placed into the common bile duct. Bile flowed through the stent. The stent was in good position. Impression: - A filling defect consistent with a stone was seen on the cholangiogram. - Choledocholithiasis was found. Complete removal was accomplished by biliary sphincterotomy and balloon extraction. - A biliary sphincterotomy was performed. - The biliary tree was swept. - One plastic stent was placed into the common bile duct. Recommendation: - Return patient to [facility] for ongoing care. - Clear liquid diet. - Continue present medications. - Return to my office in 4 weeks. Procedure Code(s): --- Professional --- 19120, Endoscopic retrograde cholangiopancreatography (ERCP); with placement of endoscopic stent into biliary or pancreatic duct, including pre- and post-dilation and guide wire passage, when performed, including sphincterotomy, when performed, each stent [id number], Endoscopic retrograde cholangiopancreatography (ERCP); with removal of calculi/debris from biliary/pancreatic duct(s) Diagnosis Code(s): --- Professional --- K80.50, Calculus of bile duct without cholangitis or cholecystitis without obstruction R93.2, Abnormal findings on diagnostic imaging of liver and biliary tract CPT copyright 2017 [employer]. All rights reserved. The codes documented in this report are preliminary and upon wage and salary specialist review may be revised to meet current compliance requirements. Gulshan Burgos MD 07/28/2020 11:55:09 AM This report has been signed electronically. Number of Addenda: 0 Note Initiated On: 07/28/2020 10:28 AM
--- NOTE | 2020-07-28 11:56 | OP.CCLET_ITS ---
07/28/2020 Justyn Nieto [address] [place] [address] Re : ERCP procedure for Connie Calix Dear Dr. Nieto This procedure was performed on Tuesday, July 28, 2020. My impressions and recommendations are as follows: Impressions : - A filling defect consistent with a stone was seen on the cholangiogram. - Choledocholithiasis was found. Complete removal was accomplished by biliary sphincterotomy and balloon extraction. - A biliary sphincterotomy was performed. - The biliary tree was swept. - One plastic stent was placed into the common bile duct. Recommendations : - Return patient to [facility] for ongoing care. - Clear liquid diet. - Continue present medications. - Return to my office in 4 weeks. My findings are described in the full procedure note, which is enclosed. If I can be of further assistance, please feel free to contact me at Doctor phone number(s): , Work: . Sincerely, Gulshan Burgos MD 07/28/2020 11:55:09 AM This report has been signed electronically.
[2020-07-28] MEDS: Ensure Clear 120 ML Liquid PO ×3 (14:01→22:48)
[2020-07-28] MEDS: Ondansetron 4 MG/2 ML Vial IV (16:03)
--- NOTE | 2020-07-28 21:28 | DCINST_ITS ---
Discharge Diet: No Restrictions - drink plenty of fluids Discharge Activity: Return to Normal Activity, May not drive while taking narcot ic pain medications. Lifting Restrictions: no lifting greater than 20 pounds for two weeks Call your doctor if your incision/area has: Continuous Slow Oozing, Foul Smelling Discharge Additional Instructions: Recommended pain control regimen - May take 600 mg ibuprofen (Motrin) and then in 3-4 hours, may take 650 mg aceta minophen (Tylenol), then in 3-4 hours may take 600 mg ibuprofen, then in 3-4 hours may take 650 mg acetaminophen and so on for 2-3 days May take narcotic pain medication for pain that is not controlled by above and at night for comfort through the night Leave dressings in place May get dressings wet in shower - do not scrub in the area and pat dry Do not soak - no tub baths/swimming If dressing appears to be soiled/open at one end/no longer sealed - may remove dressing but leave site uncovered (do not replace with any type of dressing) - leave steristrips in place - may get wet but do not scrub in the area and pat dry Avoid carbonated beverages for a couple of days as they may cause bloating which may cause you discomfort after abdominal surgery You may have bleeding at the dressing sites. If small amounts and not seeping through the dressing, do not worry - leave dressing in place. If starting to seep through the dressing, you may remove the dressing and take a clean wash lashae the and apply direct pressure to the area for at least an hour and then apply a new clean bandaid at the site. If it still has not stopped bleeding, please call the office during the day or the [facility] chronograph operator at [phone] after hours and ask for Dr. Thompson Please call for a follow up appointment at the office to be seen in 1-2 weeks for a date and time available at your convenience. Call . Allergies/Adverse Reactions: Allergies morphine Adverse Reaction (Verified 07/27/20 14:10) Other Medications to take at Discharge Ergocalciferol [Vitamin D] 50,000 unit PO Q7D 07/10/16 Hydrocodone Bitart/Apap 5-325 [[place] 5MG-325MG] 1 tablet PO Q8H PRN PRN 5 Days #15 tablet 07/28/20 The following prescriptions were given: Hydrocodone Bitart/Apap 5-325 [[place] 5MG-325MG] 1 tablet PO Q8H PRN PRN 5 Days #15 tablet PRN Reason: Pain Score 4-10 Transmission Status: Received by [facility]/pharmacy #[id number] Primary Care Physician: Justyn Nieto MD [Primary Care Provider] - Test Results: Test results from this visit will be discussed in further detail at your follow- up appointment, if applicable. Please Follow Up With: Makenna Thompson MD - call When: in 1-2 weeks
[2020-07-29] MEDS: 0.9% Normal Saline 1,000 ML 100 ML IV (00:05)
[2020-07-29 04:20] VITALS: BP 101/64; PULSE 101; RESP 16; TEMP 36.7; O2SAT 98
--- NOTE | 2020-07-29 04:40 | NURSING ---
Patient has still been painful during night but is taking less pain medication. Does not want to walk into the bathroom but prefers BSC d/t the pain. Bowel sounds are active in all quadrants. No c/o nausea this shift. Is able to tolerate clear liquids at this time.
--- NOTE | 2020-07-29 07:29 | PCS.PANDOC ---
PANDEMIC DOCUMENTATION INITIATED: Date: 06/03/2020 Time:
[2020-07-29 07:35] LABS: Absolute Lymphocyte Count 1.36 X10^3/uL (0.83-4.51); Absolute Neutrophil Count 7.4 X10^3/uL (2.0-7.7); Basophil# 0.02 X10^3/uL; Basophil% 0.2 % (0-1); Eosinophil# 0.14 X10^3/uL; Eosinophils% 1.4 % (0-5); Hematocrit 32.6 % (37-47); Hemoglobin 10.4 g/dL (12.0-15.0); Lymphocyte # 1.36 X10^3/ul (4.0); Mean Corp Hgb Conc 31.9 g/dL (32-36); Mean Corpuscular Hgb 29.4 pg (27.0-32.0); Mean Corpuscular Volume 92.1 fL (81-99); Monocyte# 0.75 X10^3/uL; Monocyte% 7.7 % (0-10); NRBC Flagged by Analyzer 0 % (0-5); Neutrophil # 7.37 X10^3/uL (2.7-7.7); Neutrophil % 76.2 % (47-70); Platelet Count 181 K/mm3 (150-450); RBC Distribution Width CV 12.6 % (11.6-14.6); RBC Distribution Width SD 42.6 fl (35.1-43.9); Red Blood Count 3.54 M/mm3 (4.2-5.4); White Blood Count 9.7 K/mm3 (4.4-11.0)
--- NOTE | 2020-07-29 07:46 | PN.SURG_ITS ---
Patient Problems: Active and Suspected Problems (This Medical Record has been edited. Action required.) Acute cholecystitis (Acute) Subjective: Patient complaint of pain, IMO has low pain threshold - has not really ambulated after either procedures - Physical Exam Vitals/I&O's: Vital Signs Temp Pulse Resp BP Pulse Ox 98.0 F 101 H 16 101/64 98 07/29/20 04:20 07/29/20 04:20 07/29/20 04:20 07/29/20 04:20 07/29/20 04:20 Oxygen Flow Rate (L/min) 2 Oxygen Delivery Method Room Air Weight: 56.019 kg Body Mass Index (BMI) 20.5 Intake and Output for Last 24 Hours 07/27/20 07/28/20 07/29/20 23:59 23:59 23:59 Intake Total 3416.67 / 3416.67 3405.58 / 3405.58 1050 / 1050 Output Total 1400 / 1400 780 / 1210 660 / 660 Balance / 2625.58 / 2195.58 390 / 390 General: Alert, Oriented x3 HEENT: Atraumatic Oral: Moist Mucosa Neck: Supple Lungs: Normal air movement Abdomen: Soft, - - FAHAD drain is serous - removed without difficulty Microbiology Past 72 Hours 07/27/20 09:14 Mucosa - Nose SARS-CoV-2 Antigen (Rapid) - Final Laboratory Results 07/29/20 07:25: WBC 9.7, RBC 3.54 L, Hgb 10.4 L, Hct 32.6 L, MCV 92.1, MCH 29.4, MCHC 31.9 L, RDW Std Deviation 42.6, RDW Coeff of [place] 12.6, Plt Count 181, MPV 11.0, Immature Gran % (Auto) 0.500, Neut % (Auto) 76.2 H, Lymph % (Auto) 14.0 L, [place] % (Auto) 7.7, Eos % (Auto) 1.4, Baso % (Auto) 0.2, Absolute Neuts (auto) 7.4, Absolute Lymphs (auto) 1.36, Nucleated RBC % 0 07/29/20 07:25: Sodium Pending, Potassium Pending, Chloride Pending, Carbon Dioxide Pending, Anion Gap Pending, BUN Pending, Creatinine Pending, Est GFR (MDRD) Af Amer Pending, Est GFR (MDRD) Non-Af Pending, BUN/Creatinine Ratio Pending, Glucose Pending, Calcium Pending, Total Bilirubin Pending, AST Pending, ALT Pending, Alkaline Phosphatase Pending, Total Protein Pending, Albumin Pending, Lipase Pending Current Medications Acetaminophen (Acetaminophen 325 Mg Tablet) 650 mg PO Q4H PRN PRN PRN Reason: HEADACHE/FEVER (T>100F) Hydrocodone Bitart/Acetaminophen (Hydrocodone Bitartrate/Apap 5/325 Tablet) 1 tablet PO Q3H PRN PRN PRN Reason: Pain Score 1-5 Sodium Chloride () 1,000 mls @ 100 mls/hr IV .Q10H [facility] Last Admin: 07/29/20 00:05 Dose: 100 mls/hr Documented by: Piperacillin Sod/Tazobactam (Sod 3.375 gm/ Sodium Chloride) 50 mls @ 12.5 mls/hr IV Q8 [facility] Last Admin: 07/29/20 05:54 Dose: 12.5 mls/hr Documented by: Sodium Chloride () 250 mls @ 15 mls/hr IV .[id number] PRN PRN Reason: Saline Flush Last Infusion: 07/28/20 23:47 Dose: 0 mls/hr Documented by: Sodium Chloride () 250 mls @ 15 mls/hr IV .[id number] PRN PRN Reason: Additional IVPB Infusion Morphine Sulfate (Morphine 4 Mg/Ml Syringe) 4 mg IV Q2H PRN PRN PRN Reason: Pain Score 6-10 Last Admin: 07/28/20 22:37 Dose: 4 mg Documented by: Nutritional Formula (Lactose Free) (Ensure Clear 120 Ml Liquid) 120 ml PO 4X/DAY [facility] Last Admin: 07/28/20 22:48 Dose: 120 ml Documented by: Ondansetron HCl (Ondansetron 4 Mg/2 Ml Vial) 4 mg IV Q8 PRN PRN Reason: NAUSEA/VOMITING Last Admin: 07/28/20 16:03 Dose: 4 mg Documented by: Sodium Chloride (0.9% Saline Lock 10 Ml Syringe) 10 - 40 ml IV UD PRN PRN Reason: SALINE FLUSH Last Admin: 07/28/20 22:38 Dose: 10 ml Documented by: Medical Necessity - Tobacco Use Smoking Status: Never smoker Assessment/Plan All Active Problems (This Medical Record has been edited. Action required.) Acute cholecystitis (Acute) Impression: POD#2 s/p laparoscopic cholecystectomy with obstructive choledocholithiasis POD#1 s/p ERCP by Dr. Burgos Plan: Will discharge to home after lunch Patient is worried about infection, I told her that if she does not ambulate - she may develop pneumonia Likelihood of intraabdominal infection is very low will follow up patient as outpatient
[2020-07-29 07:49] LABS: ALB/GLOB Ratio 0.8 RATIO (0.9-2.4); AST(SGOT) 144 U/L (15-37); Alanine Aminotransfer ALT/SGPT 304 U/L (13-56); Albumin, Serum 2.4 g/dL (3.2-5.0); Alkaline Phosphatase 110 U/L (45-117); Anion Gap 6 (5-15); BUN 5 mg/dL (7-18); BUN/Creat Ratio 9.3 RATIO (10-20); Calcium,Total 7.9 mg/dL (8.5-10.1); Chloride 106 mmol/L (98-107); Creatinine, Serum 0.54 mg/dL (0.55-1.02); EST Glomerular Filtration Rate 145 mL/min (>60); Est Glom Filt Rate - Afr Amer 176 mL/min (>60); Estimated Creatinine Clearance 138.39 ml/min; Globulin 3.2 g/dL (2.2-4.2); Glucose 91 mg/dL (74-106); Lipase 970 U/L (73-393); Potassium 3.5 mmol/L (3.5-5.1); Protein, Total 5.6 g/dL (6.4-8.2); Sodium Level 137 mmol/L (136-145)
[2020-07-29 08:32] VITALS: BP 96/50; PULSE 96; RESP 16; TEMP 37.1; O2SAT 98
[2020-07-29] MEDS: HYDROcodone Bitartrate/Apap 5/325 Tablet PO (08:38)
--- NOTE | 2020-07-29 10:48 | PHA.DC.MC ---
Pharmacy Service has performed discharge medication reconciliation and counseling for this patient. 1. HYDROCODONE/ACETAMINOPHEN 5/325MG 1T PO Q8H PRN PAIN 4-10 The patient's discharge medication list was reviewed for discrepancies and discrepancies were resolved. Home Medications Ergocalciferol [Vitamin D] 50,000 unit PO Q7D 07/10/16 Hydrocodone Bitart/Apap 5-325 [[place] 5MG-325MG] 1 tab PO Q8H PRN PRN 5 Days #15 tab 07/28/20 The patient was counseled on the following discharge medications and changes in medications for homegoing were reviewed. The Reason for Use, instructions for use, and potential side effects were reviewed for all new medications. The patient's questions regarding all of their medications were answered. The patient was able to verbally demonstrate an understanding of their discharge medications.
== END 2020-07-29 10:56 | disposition home or self-care (01) ==
LOC: ED 10:32 → MS3 18:22
PROVIDERS: Surgery; Admitting Provider Surgery; Emergency Provider Emergency Medicine; PCP Family Medicine; Visit Provider Surgery
PROC: (CPT 47610; principal; 2020-07-27 12:30)
DX: K80.67 Calculus of gallbladder and bile duct with acute and chronic cholecystitis with obstruction (principal); K80.12 Calculus of gallbladder with acute and chronic cholecystitis without obstruction; R93.2 Abnormal findings on diagnostic imaging of liver and biliary tract
CPT/HCPCS: 00790; 43264; 43274; 47563; 74300; 74330; 76000; 76705; 80048; 80053; 80076; 82150; 83690; 84703; 85025; 87426; 88304; 93005; 96361; 96365; 96366; 96375; 96376; 97802; 99218; 99284; J7030; J7050; J7120; A4216; C1769; G0378; J1610; J2405

== ENCOUNTER 2020-08-30 09:07 | Day surgery (SDC) | payer MEDICAID, SELFPAY ==
[2020-08-21 09:04] VITALS: BMI 21.6
[2020-08-30] VITALS (7 sets, daily range): BP systolic 105–125; BP diastolic 69–77; PULSE 83–122; RESP 16–18; TEMP 36.3–37.1; O2SAT 99–100; BMI 19.3
--- NOTE | 2020-08-30 06:53 | HP_ITS ---
Intake Vital Signs 08/21/20 Height 5 ft 5 in 08/21/20 Weight: 130 lb 08/21/20 BMI 21.6 08/21/20 BP 97/61 08/21/20 Blood Pressure Location Rt brachial 08/21/20 Position Sitting 08/21/20 Respiration 18 Intake Visit Reasons: Discuss ERCP Stent Removal Chief Complaint: ercp with stent removal Sociology Teacher Required: No Is patient in pain?: No Allergies morphine Adverse Reaction (Verified 08/21/20 09:05) Other Medications Ergocalciferol [Vitamin D] 50,000 unit PO Q7D 07/10/16 [History Confirmed 08/21/20] PFSH Medical History Acute cholecystitis (Acute) Surgical History S/P laparoscopic cholecystectomy (Acute) Status post section (Acute) Status post endoscopic retrograde cholangiopancreatography (Acute) Family History Mother Hypertension Social History (Updated 08/21/20 @ 09:[address] Gulshan Burgos MD) Smoking Status: Never smoker alcohol intake: current alcohol intake frequency: a few times a month HPI HPI HPI: CHENCHO BENTON, is a 25 F who presents to the office today for HPI HPI Surgical H&P: Yes HPI: CHENCHO BENTON, is a 25 F who presents to the office today for Follow-up after ERCP with stent placement. Patient reports she is almost back to normal with no abdominal pain or nausea or vomiting. ROS General General: No weight change or fatigue Cardio Cardiovascular: No murmur, pacemaker, heart disease, atrial fibrillation, high blood pressure, heart attack, heart stent, palpitations, shortness of breat with exertion or chest pain Psych Psychiatric: No depression or anxiety Resp Respiratory: No shortness of breath, No sleep apnea, No cough, No COPD, No asthma, No emphysema, No wheezing Gastro Gastrointestinal: No abdominal pain, No nausea or vomiting, No diarrhea, No constipation, No blood in stool, No acid reflux, No hemorrhoids, No ulcers, No gallbladder problem, No black,tarry stools Jhonny Hematologic: No blood thinners Exam Const General: cooperative Orientation: alert, oriented x3 Resp Effort & Inspection: normal respiratory effort Auscultation: clear to auscultation bilaterally Cardio Rate: regular rate Rhythm: regular rhythm Heart Sounds: no murmurs GI Inspection: non-distended Palpation: soft, nontender Assessment & Plan Problems 1. Choledocholithiasis K80.50 Plan The patient had choledocholithiasis and had ERCP with stent insertion. The patient requires ERCP with stent removal. I discussed this with her and I will schedule her for surgery. I discussed the risks of bleeding, infection, perforation of the bile duct or bowel or pancreatitis. The patient understands the risks and is willing to proceed with ERCP for stent removal. Gulshan Burgos MD Pager: [facility] [address] [place] [address] [address] [place] [address] Office: Orders Orders: ERCP Biliary Only Today Z98.890 Coding Level of Care Code Global Post Op Diagnoses Choledocholithiasis K80.50 I have re-examined the patient. There are no clinical changes since date of exam.
[2020-08-30 09:44] LABS: Internal QC Validated? YES +Cl - CLEAR BKGD; Pregnancy, Urine Negative Negative
[2020-08-30] MEDS: Lactated Ringers 1,000 ML 999 ML IV (09:45)
--- NOTE | 2020-08-30 10:30 | RAD_ITS ---
STUDY: ERCP. REASON FOR EXAM: Female, 25 years old. PAIN FLUOROSCOPY TIME (if supplied): ( 68.7 seconds ) minutes/seconds. One film was submitted. TECHNIQUE: Intraoperative imaging provided for ERCP. COMPARISON: None. FINDINGS: Intraoperative imaging provided for ERCP. Stent removal. RAD/ERCP Biliary Only IMPRESSION: Stent removal. Electronically Signed: Rene Bell MD at 14:30 EST , Service support ,
--- NOTE | 2020-08-30 11:00 | OP.CCLET_ITS ---
08/30/2020 Makenna Thompsno MD [address] [place] [address] Re : ERCP procedure for Connie Calix Dear Dr. Thompson This procedure was performed on Sunday, August 30, 2020. My impressions and recommendations are as follows: Impressions : - Choledocholithiasis was found. Complete removal was accomplished by balloon extraction. - One stent was removed from the biliary tree. - The biliary tree was swept. Recommendations : - Discharge patient to home. - Resume previous diet. - Continue present medications. My findings are described in the full procedure note, which is enclosed. If I can be of further assistance, please feel free to contact me at Doctor phone number(s): , Work: . Sincerely, Gulshan Burgos MD 08/30/2020 10:59:54 AM This report has been signed electronically.
--- NOTE | 2020-08-30 11:00 | OP.ERCP_ITS ---
Patient Name: Connie Calix Procedure Date: 08/30/2020 10:25 AM Date of : 1995 Age: 25 Procedure: ERCP Indications: Common bile duct stone(s) Providers: Gulshan Burgos MD Referring MD: Justyn Nieto Medicines: General Anesthesia Patient Profile: This is a 25 year old female. Refer to note in patient chart for documentation of history and physical. Complications: No immediate complications. Estimated blood loss: Minimal. Procedure: Pre-Anesthesia Assessment: - Prior to the procedure, a History and Physical was performed, and patient medications and allergies were reviewed. The patient's tolerance of previous anesthesia was also reviewed. The risks and benefits of the procedure and the sedation options and risks were discussed with the patient. All questions were answered, and informed consent was obtained. Prior Anticoagulants: The patient has taken no previous anticoagulant or antiplatelet agents. After reviewing the risks and benefits, the patient was deemed in satisfactory condition to undergo the procedure. After obtaining informed consent, the scope was passed under direct vision. Throughout the procedure, the patient's blood pressure, pulse, and oxygen saturations were monitored continuously. The [id number]/n [id number] endoscope was introduced through the mouth, and advanced to the duodenum and used to inject contrast into the bile duct. The ERCP was accomplished without difficulty. The patient tolerated the procedure well. Scope In: 10:47:38 AM Scope Out: 10:54:40 AM Total Procedure Duration Time 0 hours 7 minutes 2 seconds Findings: One stent was removed from the biliary tree using a snare. A 0.035 inch x 260 cm straight Dreamwire was passed into the biliary tree. The biliary tree was swept with a 12 mm balloon starting at the bifurcation. One stone was removed. No stones remained. Impression: - Choledocholithiasis was found. Complete removal was accomplished by balloon extraction. - One stent was removed from the biliary tree. - The biliary tree was swept. Recommendation: - Discharge patient to home. - Resume previous diet. - Continue present medications. Procedure Code(s): --- Professional --- 60991, Endoscopic retrograde cholangiopancreatography (ERCP); with removal of foreign body(s) or stent(s) from biliary/pancreatic duct(s) 92091, Endoscopic retrograde cholangiopancreatography (ERCP); with removal of calculi/debris from biliary/pancreatic duct(s) Diagnosis Code(s): --- Professional --- K80.50, Calculus of bile duct without cholangitis or cholecystitis without obstruction Z46.59, Encounter for fitting and adjustment of other gastrointestinal appliance and device CPT copyright 2017 [employer]. All rights reserved. The codes documented in this report are preliminary and upon wellness manager review may be revised to meet current compliance requirements. Gulshan Burgos MD 08/30/2020 10:59:54 AM This report has been signed electronically. Number of Addenda: 0 Note Initiated On: 08/30/2020 10:25 AM
== END 2020-08-30 13:44 | disposition home or self-care (01) ==
LOC: EN 09:07 → AC 09:07
PROVIDERS: Anesthesiology; PCP Family Medicine; Referring Provider Family Medicine; Visit Provider Surgery
PROC: (CPT 43260; principal; 2020-08-30 09:45)
DX: K80.50 Calculus of bile duct without cholangitis or cholecystitis without obstruction (principal); Z46.59 Encounter for fitting and adjustment of other gastrointestinal appliance and device; Z20.822 Contact with and (suspected) exposure to COVID-19
CPT/HCPCS: 43264; 43275; 74328; 76000; 81025; 87426; C9803; J7120; J2405

== ENCOUNTER 2020-08-31 13:22 | Emergency (ER) | payer MEDICAID, SELFPAY ==
[2020-08-30 09:50] VITALS: BMI 19.3
[2020-08-31 13:23] VITALS: BP 113/67; PULSE 100; RESP 15; TEMP 36.7; O2SAT 97; BMI 19.4
--- NOTE | 2020-08-31 13:29 | EKG12_ITS ---
Test Reason : PALPS Blood Pressure : / mmHG Vent. Rate : 087 BPM Atrial Rate : 087 BPM P-R Int : 122 ms QRS Dur : 090 ms QT Int : 360 ms P-R-T Axes : 064 061 015 degrees QTc Int : 433 ms Normal sinus rhythm Normal ECG Confirmed by RICH GUNDERSON, ERIKA ([id number]), editor map SAM PFEIFFER ([id number]) on 09/03/2020 12:20:26 PM Referred By: MATTY Confirmed By:ERIKA VILLANUEVA MD
--- NOTE | 2020-08-31 14:20 | CT_ITS ---
STUDY: CTA CHEST REASON FOR EXAM: Female, 25 years old. tachycardia, chest pain RADIATION DOSAGE (If Supplied By Facility): CTDIvol = ( 4.78 ) mGy, DLP = ( 132.83 ) mGycm TECHNIQUE: The examination was performed with the intravenous administration of IV 100mL [id number]-370. Post-processing of the angiographic images was performed, with multiplanar reformation and 3D reconstruction. Individualized dose optimization techniques were used for this CT. COMPARISON: None. FINDINGS: Normal enhancement of the main pulmonary artery and right and left pulmonary arteries. Normal enhancement of the bilateral peripheral pulmonary arteries. There is no demonstrated pulmonary embolism. Normal thoracic aorta and visualized great vessels. There is no demonstrated aortic dissection. Normal heart and pericardium. Normal mediastinum. Normal hilar regions. Normal visualized trachea and bronchi. The lungs are well expanded. Normal pulmonary parenchyma. Normal pleura. Normal chest wall structures. Normal osseous structures. Normal visualized upper abdomen. CT/CTA Chest W/WO Contrast IMPRESSION: No central or segmental pulmonary embolism. Electronically Signed: Luis Daniel Navarrete MD ([place]) at 15:30 EST , Service support ,
--- NOTE | 2020-08-31 14:20 | ED.VISSUMM ---
- ER Visit Summary Date of Service: 08/31/20 Chief Complaint: [Palpitations and chest discomfort] History of Present Illness: The patient is a 25 F [resents to the emergency department complaint of palpitations since yesterday. Patient states that she had gallbladder surgery [address] Makenna Thompson and the following day Dr. Granados placed a stent in her bile duct. Patient had been doing well and yesterday had a follow-up visit to have her stent removed. After her procedure she was doing well and nursing staff noted that her heart rate would race to the 130s at times and she was unaware of it at that time. Patient states that she then subsequently went home and since that time has had episodes of flushed face and heart racing and some mild pressure in her chest. Patient also states that 2 days after her surgery she had some difficulty breathing while in the hospital. No history of PE or DVT. No family history of heart disease. She denies recent illness otherwise.] Physical Examination: [HEENT-PERRLA, EOMI. Cranial nerves II through XII grossly intact. TMs clear. Mucous membranes moist. No adenopathy. Cardiovascular-regular rate and rhythm without murmur or ectopy Lungs-clear to auscultation, chest wall stable without crepitus or subcu emphysema Abdomen-normoactive bowel sounds, soft, nontender, no rebound or rigidity, no peritoneal signs. Extremities-intact ?4, normal range of motion, normal pulses, atraumatic] Test Results: [EKG obtained arrival shows sinus rhythm with a ventricular rate of 87 bpm with no acute ST segment changes. No ectopy. CBC with differential showed a white count of 9.5, hemoglobin 11, hematocrit 37, plates 190. Chemistries unremarkable. BUN was 9 and creatinine 1.07. LFTs showed a total bilirubin of 1.4, alk phos of 68, ALT of 17, AST of 11, and lipase 137. Troponin was less than 0.015. CTA of the chest obtained was negative for PE or dissection. Orthostatic vital signs were negative.] Emergency Department Course and Treatment: [The line established on arrival. Patient was ordered a liter mostly fluid bolus.] Treatment Plan: [Follow-up with primary care physician in 3 to 5 days.] Disposition: [Discharged home in stable condition] Impression: [Palpitations/tachycardia-etiology uncertain ] This note was generated with Dragon dictation software. It may contain incorrect words, spelling, and punctuation that were not noted in review of the chart prior to signing ED Disposition - Plan for ED Patient: Referrals: Justyn Nieto MD [Primary Care Provider] -
[2020-08-31 14:30] VITALS: BP 95/64; BP 97/72; BP 98/73; PULSE 85; PULSE 91
[2020-08-31 14:39] LABS: AST(SGOT) 11 U/L (15-37); Absolute Lymphocyte Count 2.63 X10^3/uL (0.83-4.51); Absolute Neutrophil Count 6.3 X10^3/uL (2.0-7.7); Alanine Aminotransfer ALT/SGPT 17 U/L (13-56); Albumin, Serum 3.6 g/dL (3.2-5.0); Alkaline Phosphatase 68 U/L (45-117); Anion Gap 6 (5-15); BUN 9 mg/dL (7-18); BUN/Creat Ratio 8.4 RATIO (10-20); Basophil# 0.03 X10^3/uL; Basophil% 0.3 % (0-1); Calcium,Total 8.3 mg/dL (8.5-10.1); Chloride 108 mmol/L (98-107); Creatinine, Serum 1.07 mg/dL (0.55-1.02); EST Glomerular Filtration Rate 65 mL/min (>60); Eosinophil# 0.07 X10^3/uL; Eosinophils% 0.7 % (0-5); Est Glom Filt Rate - Afr Amer 79 mL/min (>60); Estimated Creatinine Clearance 66.08 ml/min; Globulin 3.6 g/dL (2.2-4.2); Glucose 136 mg/dL (74-106); Hematocrit 36.9 % (37-47); Hemoglobin 11.4 g/dL (12.0-15.0); Lipase 137 U/L (73-393); Lymphocyte # 2.63 X10^3/ul (4.0); Lymphocyte % 27.6 % (19-41); Mean Corp Hgb Conc 30.9 g/dL (32-36); Mean Corpuscular Hgb 28.9 pg (27.0-32.0); Mean Corpuscular Volume 93.4 fL (81-99); Mean Platelet Vol. 11.3 fl (6.2-12.0); Monocyte# 0.49 X10^3/uL; Monocyte% 5.1 % (0-10); NRBC Flagged by Analyzer 0 % (0-5); Neutrophil # 6.27 X10^3/uL (2.7-7.7); Neutrophil % 65.8 % (47-70); Platelet Count 190 K/mm3 (150-450); Potassium 3.8 mmol/L (3.5-5.1); Protein, Total 7.2 g/dL (6.4-8.2); RBC Distribution Width SD 44.6 fl (35.1-43.9); Red Blood Count 3.95 M/mm3 (4.2-5.4); Sodium Level 138 mmol/L (136-145); White Blood Count 9.5 K/mm3 (4.4-11.0)
[2020-08-31] MEDS: 0.9% Normal Saline 1,000 ML 150 ML IV (14:45)
--- NOTE | 2020-08-31 15:45 | ED.DEP ---
ED Disposition - Plan for ED Patient: Instructions: ED Tachycardia: PAT, ED Palpitations Referrals: Justyn Nieto MD [Primary Care Provider] - 3-5 Days
[2020-08-31 15:58] VITALS: BP 99/67; PULSE 80; RESP 18; O2SAT 100
== END 2020-08-31 17:37 | disposition home or self-care (01) ==
PROVIDERS: Emergency Provider Emergency Medicine; PCP Family Medicine
DX: R00.2 Palpitations (principal); R00.0 Tachycardia, unspecified; R07.89 Other chest pain
CPT/HCPCS: 71275; 80053; 83690; 84484; 85025; 93005; 96360; 96361; 99285; J7030; Q9967; A4216

== ENCOUNTER 2022-01-28 22:58 | Emergency (ER) | payer MEDICAID, SELFPAY ==
[2022-01-28 22:59] VITALS: BP 115/65; PULSE 110; RESP 15; TEMP 36.6; O2SAT 98
[2022-01-28] MEDS: 0.9% Normal Saline 1,000 ML 999 ML IV (23:30)
[2022-01-28 23:46] LABS: Absolute Lymphocyte Count 0.68 X10^3/uL (0.83-4.51); Absolute Neutrophil Count 6.4 X10^3/uL (2.0-7.7); Basophil# 0.02 X10^3/uL; Basophil% 0.3 % (0-1); Hematocrit 37.4 % (37-47); Hemoglobin 12.6 g/dL (12.0-15.0); Lymphocyte # 0.68 X10^3/ul (0.83-4.51); Mean Corp Hgb Conc 33.7 g/dL (32-36); Mean Corpuscular Hgb 30.1 pg (27.0-32.0); Mean Corpuscular Volume 89.5 fL (81-99); Mean Platelet Vol. 10.8 fl (6.2-12.0); Monocyte# 0.42 X10^3/uL; Monocyte% 5.6 % (0-10); NRBC Flagged by Analyzer 0 % (0-5); Neutrophil # 6.39 X10^3/uL (2.7-7.7); Neutrophil % 84.4 % (47-70); Platelet Count 208 K/mm3 (150-450); RBC Distribution Width CV 12.5 % (11.6-14.6); Red Blood Count 4.18 M/mm3 (4.2-5.4); White Blood Count 7.6 K/mm3 (4.4-11.0)
[2022-01-28] MEDS: Ondansetron 4 MG/2 ML Vial IV (23:54)
[2022-01-28 23:59] LABS: Internal QC Validated? YES +Cl - CLEAR BKGD; Pregnancy, Serum, hCG Quali. NEGATIVE Negative
[2022-01-29 00:04] LABS: Anion Gap 8 (5-15); BUN 10 mg/dL (7-18); BUN/Creat Ratio 17.1 RATIO (10-20); Calcium,Total 8.9 mg/dL (8.5-10.1); Chloride 104 mmol/L (98-107); Creatinine, Serum 0.58 mg/dL (0.55-1.02); EST Glomerular Filtration Rate 130 mL/min (>60); Est Glom Filt Rate - Afr Amer 157 mL/min (>60); Estimated Creatinine Clearance 124.09 ml/min; Glucose 135 mg/dL (74-106); Potassium 3.6 mmol/L (3.5-5.1); Sodium Level 135 mmol/L (136-145)
[2022-01-29 00:11] LABS: AST(SGOT) 14 U/L (15-37); Alanine Aminotransfer ALT/SGPT 20 U/L (13-56); Alkaline Phosphatase 63 U/L (45-117); Bilirubin, Direct 0.26 mg/dL (0.00-0.30); Globulin 3.7 g/dL (2.2-4.2); Lipase 80 U/L (73-393); Protein, Total 7.7 g/dL (6.4-8.2)
--- NOTE | 2022-01-29 01:15 | EDS_ITS ---
HPI History of Present Illness Chief Complaint: Nausea/Vomiting Narrative Narrative: Patient is a 26-year-old female with past medical history of acute cholecystitis and previous cholecystectomy. She states that she awoke today feeling mild abdominal discomfort with nausea and has since progressed to recurrent bouts of vomiting and the inability to keep any fluid or food down. She denies any known sick contacts but secondary to her persistent nausea and vomiting presents for evaluation [facility] Medical History (Updated 01/29/22 @ 01:[address] Tino Hayes DO) Acute cholecystitis Home Medications ondansetron 4 mg disintegrating tablet 4 mg PO TID PRN nausea and vomiting #21 tabs 01/29/22 [Rx Last Taken Unknown] Allergy/AdvReac Type Severity Reaction Status Date / Time morphine Allergy Itching Verified 01/28/22 23:03 Family History Mother Hypertension Surgical History S/P laparoscopic cholecystectomy Status post section Status post endoscopic retrograde cholangiopancreatography Social History (Updated 08/21/20 @ 09:[address] Gulshan Burgos MD) Smoking Status: Never smoker alcohol intake: current alcohol intake frequency: a few times a month [facility] ED Constitutional Constitutional ED: Denies chills or fever(s) ENT ENT ED: Denies sore throat Cardiovascular Cardiovascular: Denies chest pain Respiratory/Chest Respiratory/Chest: Denies cough or dyspnea Gastrointestinal Gastrointestinal: Reports abdominal pain, nausea and vomiting; Denies diarrhea Genitourinary Genitourinary ED: Denies dysuria Musculoskeletal Musculoskeletal: Denies myalgias Integumentary Denies rash Neurologic Neurologic: Reports paresthesias and weakness; Denies headache(s) Hematologic/Lymphatic Hematologic/Lymphatic: Denies easy bleeding or easy bruising EXAM Physical Exam Const Vital Signs: 01/28/22 22:59 01/29/22 01:26 Temperature 97.9 F Temperature Source Temporal Pulse Rate 110 H 76 Respiratory Rate 15 18 Blood Pressure 115/65 124/73 H Blood Pressure Mean 81 Pulse Ox 98 100 Oxygen Delivery Method Room Air Positive well nourished and well developed General Appearance ED: well developed HEENT Reports dry mucous membranes Mouth ED: Yes dry mucous membranes Mouth: dry mucous membranes Eyes PERRL and EOMs intact bilaterally Neck supple Resp normal respiratory effort and clear to auscultation bilaterally Cardio regular rhythm Rate: tachycardic GI non-tender and non-distended GI Narrative: No voluntary guarding or rigidity no pulsatile mass or fluid wave Auscultation: hyperactive bowel sounds Palpation: soft Extremity Extremity Narrative: 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 Her constellation of symptoms is most consistent with a viral infection. At this time as her abdomen is soft and nonsurgical and nondistended I do not feel there is need for a CT scan. Basic blood work was obtained which revealed no clinically significant findings. After IV hydration and treatment with nausea and Protonix patient had improvement of symptoms and was able to tolerate oral intake without difficulty. Therefore as patient's work-up reveals no clinically significant findings and she is tolerating oral intake without recurrent vomiting there is no need for further work-up and patient is otherwise safe for discharge Lab Data Attestation: I reviewed the patient's lab results. Labs: Laboratory Results - last 24 hr 01/28/22 01/28/22 01/28/22 23:27 23:27 23:32 WBC 7.6 RBC 4.18 L Hgb 12.6 Hct 37.4 MCV 89.5 MCH 30.1 MCHC 33.7 RDW Std Deviation 41.0 RDW Coeff of [place] 12.5 Plt Count 208 MPV 10.8 Immature Gran % (Auto) 0.700 Neut % (Auto) 84.4 H Lymph % (Auto) 9.0 L [place] % (Auto) 5.6 Eos % (Auto) 0.0 Baso % (Auto) 0.3 Absolute Neuts (auto) 6.4 Absolute Lymphs (auto) 0.68 L Nucleated RBC % 0 Sodium Potassium Chloride Carbon Dioxide Anion Gap BUN Creatinine Estim Creat Clear Calc Est GFR (MDRD) Af Amer Est GFR (MDRD) Non-Af BUN/Creatinine Ratio Glucose Calcium Magnesium 2.0 Total Bilirubin 1.30 H Direct Bilirubin 0.26 AST 14 L ALT 20 Alkaline Phosphatase 63 Total Protein 7.7 Albumin 4.0 Globulin 3.7 Lipase 80 Serum , Qual NEGATIVE 01/28/22 23:32 WBC RBC Hgb Hct MCV MCH MCHC RDW Std Deviation RDW Coeff of [place] Plt Count MPV Immature Gran % (Auto) Neut % (Auto) Lymph % (Auto) [place] % (Auto) Eos % (Auto) Baso % (Auto) Absolute Neuts (auto) Absolute Lymphs (auto) Nucleated RBC % Sodium 135 L Potassium 3.6 Chloride 104 Carbon Dioxide 23.0 Anion Gap 8 BUN 10 Creatinine 0.58 Estim Creat Clear Calc 124.09 Est GFR (MDRD) Af Amer 157 Est GFR (MDRD) Non-Af 130 BUN/Creatinine Ratio 17.1 Glucose 135 H Calcium 8.9 Magnesium Total Bilirubin Direct Bilirubin AST ALT Alkaline Phosphatase Total Protein Albumin Globulin Lipase Serum , Qual Discharge Plan Triage Chief Complaint: Nausea/Vomiting ED Provider: Tino Hayes Dx/Rx/DC Orders Clinical Impression: Nausea & vomiting, Dehydration Instructions: ED Dehydration (Adult), ED Vomiting (Adult) Prescriptions: New ondansetron 4 mg tablet,disintegrating 4 mg PO TID PRN (Reason: nausea and vomiting) Qty: 21 0RF Primary Care Provider: Justyn Nieto Referrals: Justyn Nieto MD [Primary Care Provider] - Disposition Disposition: Home, Self Care Discharge Date/Time: 01/29/22 01:27
[2022-01-29 01:26] VITALS: BP 124/73; PULSE 76; RESP 18; O2SAT 100
== END 2022-01-29 01:27 | disposition home or self-care (01) ==
PROVIDERS: Emergency Provider Emergency Medicine; PCP Family Medicine; Visit Provider Emergency Medicine
DX: R11.2 Nausea with vomiting, unspecified (principal); E86.0 Dehydration; Z90.49 Acquired absence of other specified parts of digestive tract
CPT/HCPCS: 80048; 80076; 83690; 83735; 84703; 85025; 96365; 96375; 99282; J7030; A4216; J2405

== ENCOUNTER 2024-07-10 22:16 | Emergency (ER) | payer MEDICAID, SELFPAY ==
[2024-07-10 22:16] VITALS: BP 108/71; PULSE 133; RESP 18; TEMP 39.2; O2SAT 99; BMI 22.2
--- NOTE | 2024-07-10 23:15 | EDS_ITS ---
HPI History of Present Illness Chief Complaint: Fever Narrative Narrative: 29-year-old female who denies significant past medical history although she had pneumonia few months ago presents with fever and sore throat that began earlier today. She states she took ibuprofen, but seems to be getting worse. While her symptoms started out a sore throat, progressed to body aches and frequent urination as well. She states she is now having bodyaches and weakness and noticed that she has a fast heart rate. She states that when she becomes ill, she becomes dehydrated very quickly. However, she denies any nausea or vomiting, or diarrhea. She last took ibuprofen at 6 PM, approximately [address] [facility] Medical History (Updated 07/11/24 @ 00:00 by Kip Garza MD) Acute cholecystitis Home Medications ?Medication ?Instructions ?Recorded ?Last Taken ?Type amoxicillin 875 mg-potassium 1 tab PO BID #20 tabs 07/11/24 Unknown Rx clavulanate 125 mg tablet Allergy/AdvReac Type Severity Reaction Status Date / Time Iodinated Contrast Media Allergy Intermediate Rash Verified 07/10/24 22:17 (iodine contrast) morphine Allergy Itching Verified 07/10/24 22:17 Family History Mother Hypertension Surgical History Status post section Status post endoscopic retrograde cholangiopancreatography S/P laparoscopic cholecystectomy Social History Smoking Status: Never smoker alcohol intake: current alcohol intake frequency: a few times a month ROS ROS ED ROS Narrative Constitutional: Positive fever, no chills. HEENT: Positive sore throat. No neck pain. No loss of vision. No rhinorrhea. Cardiovascular: No chest pain. Positive higher heart rate/palpitations. No pedal edema. Respiratory: No cough, no shortness of breath. Abdominal: No abdominal pain. No nausea. No vomiting. Genitourinary: No dysuria. No hematuria. Musculoskeletal: Positive myalgias, arthralgias, and back pain. Neurologic: No headaches. No dizziness. No lightheadedness. Skin: No rash. No change in color. EXAM Physical Exam Narrative Exam Narrative: Temperature 102.5 ?F, vital signs noted. HEENT examination shows mild pharyngeal erythema, airway patent, no meningismus. No drooling or trismus. Questionable tonsillar exudate. Cardiovascular examination reveals a tachycardia. Lungs are clear to auscultation bilaterally. Abdomen soft nontender with normal active bowel sounds. Neurological examination nonfocal and nonlateralizing. Const Vital Signs: 07/10/24 22:16 Temperature 102.5 F H Temperature Source Oral Pulse Rate 133 H Respiratory Rate 18 Blood Pressure 108/71 Blood Pressure Mean 83 Pulse Ox 99 Oxygen Delivery Method Room Air MDM MDM MDM Narrative Medical decision making narrative: Differential diagnosis includes but not limited to strep pharyngitis versus viral syndrome including COVID, influenza, and RSV. Given her urinary frequency, UA will be obtained, but she has more upper respiratory complaints including sore throat. I have higher suspicion for influenza currently. She was administered Tylenol 1 g orally here. She states that she gets dehydrated quickly and is requesting IV fluids and she will be bolused normal saline 1 L intravenously as she has a heart rate of 133 bpm. I reviewed her respiratory swabs, and she has negative COVID, influenza, and RSV swabs. She has positive for strep throat. At this point in time, I do not feel that she needs a chest x-ray as her pulse ox is 99% on room air, her lungs are clear to auscultation bilaterally, and she will be on antibiotics. Additionally I do not feel that she needs a urinalysis. She was given her first dose of Augmentin here and prescription written for the next 10 days. I feel she can follow-up with her primary care provider. Return instructions to the emergency department were reviewed. Disposition is discharged home in stable condition. History & Record Review Discussion w/independent historian: Patient and Friend Discharge Plan Triage Chief Complaint: Fever ED Provider: Kip Garza Dx/Rx/DC Orders Clinical Impression: Strep pharyngitis, Febrile illness Instructions: ED Pharyngitis, Strep (Confirmed) Prescriptions: New amoxicillin-pot clavulanate 875-125 mg tablet 1 tab PO BID Qty: 20 0RF Primary Care Provider: Justyn Nieto Referrals: Justyn Nieto MD [Primary Care Provider] - 3-5 Days if not improving Activity Restrictions/Additional Instructions: Antibiotics as directed. Continue Tylenol and/or ibuprofen as needed for fever and pain. Return to the emergency department with new or worsening symptoms. Print Language: Luxembourger Disposition Disposition: Home, Self Care
[2024-07-10 23:19] VITALS: BP 90/52; PULSE 104; RESP 18; TEMP 37.1; O2SAT 99
[2024-07-10] MEDS: 0.9% Normal Saline (1000mL) 1,000 ML 999 ML IV (23:28)
[2024-07-10] MEDS: Acetaminophen 500 MG Tablet 1000 MG PO (23:28)
[2024-07-11] MEDS: Amox/Clavulanate 875 MG Tablet PO (00:04)
[2024-07-11 00:31] VITALS: BP 100/48; PULSE 104; RESP 18; TEMP 37.1; O2SAT 98
== END 2024-07-11 00:32 | disposition home or self-care (01) ==
PROVIDERS: Emergency Provider Emergency Medicine; PCP Family Medicine; Visit Provider Emergency Medicine
DX: J02.0 Streptococcal pharyngitis (principal); R35.0 Frequency of micturition; Z87.01 Personal history of pneumonia (recurrent)
CPT/HCPCS: 87631; 87651; 96360; 99283; A4216

== ENCOUNTER 2024-11-16 11:30 | Outpatient (RCR) | payer MEDICAID, SELFPAY ==
--- NOTE | 2024-10-16 18:25 | HP.PTEVAL_ITS ---
Patient's Visit Information Visit Information Visit Information: CHENCHO BENTON is a 29 year old F referred to Physical Therapy by LIN Suarez with a diagnosis of LOW BACK PAIN ,RADICULOPATHY ,LUMBAR. Date of Evaluation: 10/16/24 Physical Therapist: Kristian Garcia, PT, Cert MDT, OCS Visit Plan Frequency: 2x /Week Plan: PT INTERVENTIONS MARIBELL EX'S PROGRESSION OF FORCES ,DLS ,POSTURAL EX'S ,BODY MECHANICS , ACTIVITY MODIFICATION,HIP STRENGTHENING AND MODLITIES Subjective Subjective: This 29 y/o female presents to physical therapy for lumbar radiculopathy. Patient has has lumbar back many years with symptom worse past several years. Patient has radicular symptoms buttock hamstrings /Seen LIN Morin x-rays lumbar X-rays show transitional anatomy and MRI August 2023 showed which showed mild degenerative changes at L5-S1 with a mild disc bulge with a small annular tear at that level. Patient has couple episodes of symptom in legs. Recommended PT ,epidural injections . May need another MRI. Patient doesn't want injections . PA thought SI provocation +.Location center lumbar. Aggravating factors sitting ,bending,lifting walking extended distances 30 mins. Alleviating factors rest.Coughing/sneezing +. Bowel/bladder -. Patient sleeping okay on stomach alleviates pain. Seen chiropractor in past. Patient condition affects QOL and function/housework tasks.Patient goals to decrease back pain. SOCAIL: VOCATION : HOME Pain Bilateral Back: Pain Intensity (Out of 10): 6 Pain Intensity Range: 10 Left Lower Extremity: Pain Intensity (Out of 10): 4 Pain Intensity Range: 10 Comment: HAMSTRINGS Objective Objective: POSTURE: decrease lordosis PALAPTION: tender LS NEURO: c/o of tingling/paresthesia feet ,reflexes L3-4 ,L4-5 ,L5-S1 2/3 FLEXABILITY: hamstrings min tight GAIT: ambulates with reciprocal pattern LUMBAR ROM: flexion mod loss pain,extension mod loss ,side glides min loss MMT:quads/hams 4/5 ,( peak force) 12.9 right .left 10.2 ,ankle 4/5 Special Tests L/S Slump test left side: Positive L/S Slump test right side: Negative L/S Left Straight Leg Raise: Negative L/S Right Straight Leg Raise: Negative Lumbar Standing: Flexion - Mechanical Response: No effect Lumbar Standing: Flexion - Symptoms During Testing: Increases Lumbar Standing: Flexion - Symptoms After Testing: Worse Lumbar Standing: Extension - Mechanical Response: No effect Lumbar Standing: Extension - Symptoms During Testing: Centralizing Lumbar Standing: Extension - Symptoms After Testing: No better Lumbar Standing: Right Side Glides - Mechanical Response: No effect Lumbar Standing: Right Side [place] - Symptoms During Testing: No effect Lumbar Standing: Right Side [place] - Symptoms After Testing: No effect Lumbar Standing: Left Side [place] - Mechanical Response: No effect Lumbar Standing: Left Side [place] - Symptoms During Testing: No effect Lumbar Standing: Left Side [place] - Symptoms After Testing: No effect Lumbar Lying: Flexion - Mechanical Response: No effect Lumbar Lying: Flexion - Symptoms During Testing: Increases Lumbar Lying: Flexion - Symptoms After Testing: Worse Lumbar Lying: Extension - Mechanical Response: No effect Lumbar Lying: Extension - Symptoms During Testing: Centralizing Lumbar Lying: Extension - Symptoms After Testing: Better Balance/Special Test Scores Oswestry Low Back Score: 29 Goals Goal 1:: Patient to be I with HEP Goal Time Frame: 4-6 Weeks Goal 2:: Patient to be I with posture /body mechanics 90% of the time Goal Time Frame: 4-6 Weeks Goal 3:: Patient to improve lumbar ROM to return to function of recovery for ADLS and Goal Time Frame: 4-6 Weeks Goal 4:: Patient to improve back oswestry score by 5 points to FOR QOL Goal Time Frame: 4-6 Weeks Goal 5:: Patient to improve hip strength by 10-15# to improve functrion Goal Time Frame: 4-6 Weeks Rehabilitation Potential Physical Therapy Diagnosis: Patient has derangement below knee with h/o lumbar bulging disc with pain with motion testing ,positioning ,worse with flexion ,sitting better and extension ,prone laying thus benefit from skillEd PT Rehabilitation Potential: Good Anticipated Interventions Patient/Client Instruction: Educate patient on: Condition and Plan of Care For the Purpose of:: To decrease pain, To increase ROM, To improve muscle performance and motor function, To improve ability to perform ADL's, To increase tolerance to activity/condition/position, To improve ability of physical actions for home/community/work/leisure, To improve gait and locomotor functions, To improve health of tissue, To decrease soft tissue restriction, To increase flexibility/ROM and To improve tolerance to ADL's Therapeutic Exercise to Include: Strength training, Body mechanics, Postural training, Flexibilty training, Dynamic Lumbar Stabilization and [place] Exercises For the Purpose of:: To decrease pain, To increase ROM, To improve muscle performance and motor function, To improve ability to perform ADL's, To increase tolerance to activity/condition/position, To improve performance and independence with ADL's, To improve ability of physical actions for home/community/work/leisure, To improve health of tissue, To decrease soft tissue restriction, To increase flexibility/ROM, To reduce risk of recurrence and To improve tolerance to ADL's TENS: Yes IF ES: Yes Cryotherapy (ice pack, ice massage): Yes Thermo therapy (hot pack): Yes Ultrasound (thermal/non thermal): Yes For the Purpose of:: To decrease pain, To increase ROM, To improve nutrient delivery to tissue, To increase oxygenation perfusion, To improve health of tissue, To decrease soft tissue restriction and To improve health and function Text: Thank you for the opportunity to evaluate your patient. For Medicare and Medicare HMO plans, please review the plan of care and approve it. It will need to be FAXED BACK to us at [phone] for Medicare purposes. For Medicare only, by signing this I certify the plan of care. Please let me know if there are questions or concerns regarding this plan of care. Physician Signature: Date:
== END 2024-11-16 19:00 | disposition home or self-care (01) ==
LOC: PT 11:30
PROVIDERS: PCP Family Medicine; Referring Provider Student in an Organized Health Care Education/Training Program; Visit Provider Student in an Organized Health Care Education/Training Program
DX: M54.16 Radiculopathy, lumbar region (principal); M54.50 Low back pain, unspecified
CPT/HCPCS: 97110; 97162; 97530

== ENCOUNTER → 2025-01-24 | Outpatient (CLI) | payer MEDICAID, SELFPAY ==
--- NOTE | 2025-01-24 16:24 | MRI_ITS ---
PROCEDURE: MR SPINE LUMBAR (ROUTINE) 01/24/2025 REASON FOR EXAM: PAIN TECHNIQUE: Multiplanar and multisequential MRI of the lumbar spine was performed without contrast. COMPARISON: Lumbar spine MRI 09/13/2023, radiographs 10/06/2024. FINDINGS: 5 [id number] lumbar-type vertebrae are preserved in height, with anatomic alignment and normal marrow signal. Mild spondylotic changes primarily at L4-L5 with mild disc desiccation, and mild facet hypertrophy. Conus is normal in signal and morphology, terminating at T12-L1. Normal appearance of the cauda equina. Unremarkable paravertebral soft tissues. At L4-5; mild disc desiccation and dorsal annular disc bulging with a midline dorsal disc annular fissure, slightly indents the ventral thecal sac with no significant spinal canal narrowing. There is minimal bilateral neural foraminal narrowing at this level. No disc bulge, spinal canal or neural foraminal narrowing at the remaining levels. MRI/Spine Lumbar (Routine) IMPRESSION: Mild degenerative disc disease with dorsal annular fissure and minimal bulging at L4-5, with minimal bilateral neural foraminal narrowing at this level. Widely patent spinal canal. Reading Location: [id number]
--- NOTE | 2025-01-24 16:24 | MRI_ITS ---
PROCEDURE: MR SPINE LUMBAR (ROUTINE) 01/24/2025 REASON FOR EXAM: PAIN TECHNIQUE: Multiplanar and multisequential MRI of the lumbar spine was performed without contrast. COMPARISON: Lumbar spine MRI 09/13/2023, radiographs 10/06/2024. FINDINGS: 5 [id number] lumbar-type vertebrae are preserved in height, with anatomic alignment and normal marrow signal. Mild spondylotic changes primarily at L4-L5 with mild disc desiccation, and mild facet hypertrophy. Conus is normal in signal and morphology, terminating at T12-L1. Normal appearance of the cauda equina. Unremarkable paravertebral soft tissues. At L4-5; mild disc desiccation and dorsal annular disc bulging with a midline dorsal disc annular fissure, slightly indents the ventral thecal sac with no significant spinal canal narrowing. There is minimal bilateral neural foraminal narrowing at this level. No disc bulge, spinal canal or neural foraminal narrowing at the remaining levels. MRI/Spine Lumbar (Routine) IMPRESSION: Mild degenerative disc disease with dorsal annular fissure and minimal bulging at L4-5, with minimal bilateral neural foraminal narrowing at this level. Widely patent spinal canal. Reading Location: [id number]
== END | disposition home or self-care (01) ==
LOC: MRI 16:22
PROVIDERS: PCP Family Medicine; Referring Provider Student in an Organized Health Care Education/Training Program; Visit Provider Student in an Organized Health Care Education/Training Program
DX: M54.16 Radiculopathy, lumbar region (principal); M46.1 Sacroiliitis, not elsewhere classified
CPT/HCPCS: 72148

== ENCOUNTER 2025-04-28 18:18 | Emergency (ER) | payer SELFPAY | END 2025-04-28 18:30 | disposition left against medical advice (07) | LOC: ED 19:00 | DX: Z53.21 Procedure and treatment not carried out due to patient leaving prior to being seen by health care provider (principal) ==

== ENCOUNTER 2025-04-28 18:22 | Emergency (ER) | payer MEDICAID, SELFPAY ==
[2025-04-28 18:23] VITALS: BP 114/77; PULSE 103; RESP 18; TEMP 37.1; O2SAT 99; BMI 20.2
--- NOTE | 2025-04-28 18:40 | RAD_ITS ---
PROCEDURE: RAD/Chest PA and Lateral
--- NOTE | 2025-04-28 18:40 | ED.VIS.DYS ---
HPI History of Present Illness Chief Complaint: Shortness of Breath Detail of Chief Complaint: Cough and shortness of breath Informant: patient Narrative Narrative: Patient presents to the emergency department complaint of cough and shortness of breath. She states that she has not been feeling well for weeks. She was diagnosed with high mold in her urine recently by functional medicine doctor and is scheduled to start some therapy for this in 2 days. Patient had her home tested and had a high levels of mold. She complains of a cough. Cough nonproductive. She tells me she had diarrhea couple weeks ago and and it lasted about 2 weeks and she just got over it about 3 days ago. She tells me she lost about 15 pounds in the last month. She denies fevers. She denies abdominal pain. She complains of some retrosternal chest pain at times. She denies recent travel or surgery. [facility] Medical History (Updated 04/28/25 @ 20:[address] Natalie Boyd, DO) Heart palpitations POTS (postural orthostatic tachycardia syndrome) Acute cholecystitis Home Medications ?Medication ?Instructions ?Recorded ?Last Taken ?Type NK 04/28/25 Unknown History Allergy/AdvReac Type Severity Reaction Status Date / Time Iodinated Contrast Media Allergy Intermediate Rash Verified 04/28/25 18:23 (iodine contrast) morphine Allergy Itching Verified 04/28/25 18:23 Family History Mother Hypertension Surgical History (Updated 10/06/24 @ 10:54 by Ary Wallace) History of lumpectomy Status post section Status post endoscopic retrograde cholangiopancreatography S/P laparoscopic cholecystectomy Social History Smoking Status: Never smoker alcohol intake: current alcohol intake frequency: a few times a month ROS ROS ED Review of Systems ROS Unobtainable: other Constitutional Constitutional ED: Reports lethargy; Denies chills, fever(s), sweats or weight loss Eyes Eyes: Denies blurry vision, change in vision or diplopia ENT ENT ED: Denies rhinorrhea or sore throat Cardiovascular Cardiovascular: Reports chest pain and racing heartbeat; Denies orthopnea Respiratory/Chest Respiratory/Chest: Reports cough, dyspnea and dyspnea on exertion; Denies orthopnea or sputum Gastrointestinal Gastrointestinal: Reports diarrhea; Denies abdominal pain, nausea or vomiting Genitourinary Genitourinary ED: Denies dysuria, hematuria or urinary frequency Musculoskeletal Musculoskeletal: Denies arthralgias, back pain, myalgias or neck pain Integumentary Denies abscess, Abrasions or rash Neurologic Neurologic: Denies headache(s) or weakness Psychiatric Psychiatric: Denies anxiety, depression or suicidal thoughts Endocrine Endocrinology: Denies polydipsia, polyphagia or polyuria Hematologic/Lymphatic Hematologic/Lymphatic: Denies easy bleeding, easy bruising or lymphadenopathy Allergic/Immunologic Allergic/Immunologic ED: Denies mouth swelling, tongue swelling or urticaria EXAM Physical Exam Const Vital Signs: 04/28/25 18:23 04/28/25 18:23 04/28/25 20:00 Temperature 98.7 F Temperature Source Oral Pulse Rate 103 H 79 Respiratory Rate 18 16 Respiratory Effort Normal Non-Labored Respiratory Depth Normal Respiratory Pattern Normal Blood Pressure 114/77 113/94 H Blood Pressure Mean 89 100 Pulse Ox 99 100 Oxygen Delivery Method Room Air Room Air Room Air Positive well nourished and well developed General Appearance ED: well developed and NAD HEENT Reports TM's clear and moist mucous membranes normocephalic and atraumatic; Negative for trauma or tenderness Tympanic Membrane ED: Yes TM's clear Eyes PERRL and EOMs intact bilaterally General Eye ED: Negative for pale conjunctiva or scleral icterus Neck no lymphadenopathy, supple and no JVD General: Negative for tenderness Chest Wall inspection of chest normal and palpation of chest normal Chest: Negative for tenderness Resp normal respiratory effort and clear to auscultation bilaterally Effort and Inspection: Negative for respiratory distress or pain with movement Auscultation: Negative for rhonchi, wheezes or diminished lung sounds Cardio regular rate, regular rhythm, S1 normal heart sound, S2 normal heart sound and no murmurs Peripheral Pulses: pulses 2+ throughout GI normal to inspection, nondistended, normoactive bowel sounds, soft to palpation, non-tender, non-distended and no masses Back/Spine no CVA tenderness and no thoracic nor lumbar tenderness Extremity normal to inspection General Extremety ED: Negative for edema General Extremity: Negative for edema Neuro oriented x3, CN's II-XII intact bilaterally, no sensory deficits noted and gait normal Sensorium / Orientation: awake, alert, oriented to person, oriented to place and oriented to time Motor Exam: strength 5/5 throughout and strength abnormal Psych mental status grossly normal Skin no rashes or lesions noted and no wounds MDM MDM MDM Narrative Medical decision making narrative: Patient presents with ongoing cough and some shortness of breath. Currently being worked up by a functional medicine physician because they found mold in her home and mold in her urine apparently. Patient clinically looks well. IV line established. EKG obtained on arrival showed a sinus rhythm with ventricular rate of 85 bpm with no acute ST segment changes. CBC with differential was normal. Chemistries unremarkable. Two-view chest x-ray obtained interpreted by myself as no evidence of infiltrate or pneumothorax or acute disease process. Patient also had a D-dimer that was negative. At this point should be discharged to home. She does not anything for cough. She will follow-up with her primary care physician. Lab Data Attestation: I reviewed the patient's lab results. Labs: Laboratory Results - last 24 hr 04/28/25 19:04 WBC 9.9 RBC 4.21 Hgb 12.3 Hct 36.8 L MCV 87.4 MCH 29.2 MCHC 33.4 RDW Std Deviation 40.6 RDW Coeff of Augustine 12.9 Plt Count 240 MPV 10.8 Immature Gran % (Auto) 0.600 Neut % (Auto) 67.2 Lymph % (Auto) 23.8 Duc[place]ne % (Auto) 6.2 Eos % (Auto) 2.0 Baso % (Auto) 0.2 Absolute Neuts (auto) 6.6 Absolute Lymphs (auto) 2.35 Nucleated RBC % 0 D-Dimer Quant (PE/DVT) 0.27 Sodium 137 Potassium 3.7 Chloride 104 Carbon Dioxide 24.3 Anion Gap 9 BUN 11 Creatinine 0.51 L Estim Creat Clear Calc 138.94 Est GFR (MDRD) Non-Af 128 BUN/Creatinine Ratio 21.8 H Glucose 121 H Calcium 9.3 Radiography Diagnostic Testin view chest x-ray obtained interpreted by myself as no evidence of infiltrate pneumothorax or acute disease process. EKG Initial EKG: Attestation: I personally reviewed and interpreted this EKG as follows: Comments: Sinus rhythm with rate of 85 bpm with no acute ST segment changes Discharge Plan Triage Chief Complaint: Shortness of Breath ED Provider: Natalie Boyd Dx/Rx/DC Orders Clinical Impression: Cough, Chest pain Instructions: ED Cough Chronic Uncertain Cause Adult, ED Chest Pain, Uncertain Cause Prescriptions: No Action NK Primary Care Provider: Sandra Luong NP Referrals: Justyn Nieto MD [Non-Staff, Family Practice] - 5-7 Days Print Language: Tajik Disposition Disposition: Home, Self Care
[2025-04-28 19:17] LABS: Hematocrit 36.8 % (37-47); Hemoglobin 12.3 g/dL (12.0-15.0); Immature Granulocytes Count 0.060 X10^3/uL (0.0-0.0); Mean Corp Hgb Conc 33.4 g/dL (32-36); Mean Corpuscular Volume 87.4 fL (81-99); Mean Platelet Vol. 10.8 fl (6.2-12.0); NRBC Flagged by Analyzer 0 % (0-5); Platelet Count 240 K/mm3 (150-450); RBC Distribution Width CV 12.9 % (11.6-14.6); RBC Distribution Width SD 40.6 fl (35.1-43.9); Red Blood Count 4.21 M/mm3 (4.2-5.4); White Blood Count 9.9 K/mm3 (4.4-11.0)
[2025-04-28 19:39] LABS: D-Dimer Quantitative (DVT/PE) 0.27 FEU/ug/m (0.27-0.49)
[2025-04-28 20:00] VITALS: BP 113/61; PULSE 79; RESP 16; O2SAT 100
[2025-04-28 20:09] LABS: Anion Gap 9 (5-15); BUN 11 mg/dL (4-19); BUN/Creat Ratio 21.8 RATIO (10-20); Calcium,Total 9.3 mg/dL (7.6-11.0); Carbon Dioxide 24.3 mmol/L (21.0-32.0); Chloride 104 mmol/L (98-108); Estimated Creatinine Clearance 138.94 ml/min (50-250); Glucose 121 mg/dL (70-99); Potassium 3.7 mmol/L (3.3-5.1)
[2025-04-28 20:56] VITALS: BP 113/84; PULSE 74; RESP 16; TEMP 36.6; O2SAT 100
== END 2025-04-28 20:59 | disposition home or self-care (01) ==
PROVIDERS: Emergency Provider Emergency Medicine; PCP Registered Nurse; Visit Provider Emergency Medicine
DX: R05.9 Cough, unspecified (principal); R07.9 Chest pain, unspecified; R06.02 Shortness of breath; R19.7 Diarrhea, unspecified
CPT/HCPCS: 71046; 80048; 85025; 85379; 93005; 99282; A4216